=== PATIENT | male | born 1975 | race Caucasian/White ===

== ENCOUNTER 2019-05-01 22:57 | Emergency (ER) | payer OTHER, SELFPAY ==
[2019-05-01 22:58] VITALS: BP 152/100; PULSE 100; RESP 15; TEMP 36.7; BMI 31.4
[2019-05-01 23:15] VITALS: BP 155/100; PULSE 96; RESP 20; O2SAT 97
--- NOTE | 2019-05-01 23:15 | EKG12_ITS ---
Test Reason : CP Blood Pressure : / mmHG Vent. Rate : 095 BPM Atrial Rate : 095 BPM P-R Int : 156 ms QRS Dur : 100 ms QT Int : 394 ms P-R-T Axes : 039 058 018 degrees QTc Int : 495 ms Normal sinus rhythm with sinus arrhythmia Nonspecific ST abnormality Prolonged QT Abnormal ECG Confirmed by LANRE WARNER, CHENCHO ([id number]), editor trade journal RAMESH PASCAL ([id number]) on 05/04/2019 9:33:58 AM Referred By: STEFAN Confirmed By:CHENCHO DE DIOS MD
--- NOTE | 2019-05-01 23:15 | RAD_ITS ---
HISTORY: Chest Pain EXAMINATION/TECHNIQUE: XR Chest 1 View: Portable COMPARISON: 07/16/2014 FINDINGS: EKG leads in place. Shallow inspiration. Normal heart size. No vascular congestion, pleural effusion, or acute pulmonary infiltration. The bony thorax appears intact. RAD/Chest 1 View (Portable) IMPRESSION: No acute cardiopulmonary disease. at 0008 Reported and signed by: Kenn Morataya MD Electronically Signed: Kenn Morataya, at 0:07 EDT Tel , Service support ,
[2019-05-01 23:53] LABS: Absolute Lymphocyte Count 3.28 X10^3/ul (0.83-4.51); Absolute Neutrophil Count 6.8 X10^3/uL (2.0-7.7); Basophil# 0.03 X10^3/uL; Basophil% 0.3 % (0-1); Eosinophil# 0.18 X10^3/uL; Eosinophils% 1.6 % (0-5); Hematocrit 45.2 % (40-54); Hemoglobin 15.4 g/dl (13.0-16.5); Lymphocyte # 3.28 X10^3/ul (4.0); Lymphocyte % 28.8 % (19-41); Mean Corp Hgb Conc 34.1 g/gl (32-36); Mean Corpuscular Hgb 30.9 pg (27.0-32.0); Mean Corpuscular Volume 90.6 fL (80-94); Mean Platelet Vol. 9.8 fl (6.2-12.0); Monocyte# 1.11 X10^3/uL; Monocyte% 9.7 % (0-10); Neutrophil # 6.77 X10^3/uL (2.7-7.7); Neutrophil % 59.4 % (47-70); Platelet Count 336 K/mm3 (150-450); RBC Distribution Width CV 12.5 % (11.6-14.6); RBC Distribution Width SD 40.1 fl (35.1-43.9); Red Blood Count 4.99 M/mm3 (4.6-6.2); White Blood Count 11.4 K/mm3 (4.4-11.0)
[2019-05-01 23:55] LABS: POSITIVE COUNT NO; POSITIVE DIFFERENTIAL NO; POSITIVE MORPHOLOGY NO
[2019-05-02] VITALS: BP 149/103; PULSE 79; RESP 19; O2SAT 96
[2019-05-02 00:01] LABS: Anion Gap 6 (5-15); BUN 18 mg/dL (7-18); BUN/Creat Ratio 16.2 RATIO (10-20); Calcium,Total 9.1 mg/dL (8.5-10.1); Chloride 106 mmol/L (98-107); Creatinine, Serum 1.11 mg/dL (0.70-1.30); EST Glomerular Filtration Rate 77 mL/min (>60); Est Glom Filt Rate - Afr Amer 93 mL/min (>60); Estimated Creatinine Clearance 92.33 ml/min; Glucose 121 mg/dL (74-106); Potassium 3.6 mmol/L (3.5-5.1); Sodium Level 139 mmol/L (136-145)
[2019-05-02 00:03] LABS: Prothrombin Time (Protime)PT. 13.2 SECONDS (11.7-14.9)
[2019-05-02] MEDS: 0.9% Normal Saline 1,000 ML 150 ML IV (00:11)
[2019-05-02] MEDS: Ondansetron 4 MG/2 ML Vial IV (00:12)
[2019-05-02] MEDS: Morphine 4 MG/ML Syringe IV (00:12)
[2019-05-02] MEDS: Aspirin 81 MG TAB.CHEW 324 MG PO (00:12)
[2019-05-02 00:24] LABS: D-Dimer Quantitative (DVT/PE) < 0.27 FEU/ug/m (0.27-0.49)
--- NOTE | 2019-05-02 00:57 | EKG12_ITS ---
Test Reason : REPEAT CP Blood Pressure : / mmHG Vent. Rate : 074 BPM Atrial Rate : 074 BPM P-R Int : 138 ms QRS Dur : 100 ms QT Int : 428 ms P-R-T Axes : 026 030 011 degrees QTc Int : 475 ms Normal sinus rhythm Nonspecific T wave abnormality Prolonged QT Abnormal ECG Confirmed by BROOKS WARNER, WILFRIDO ([id number]), publishing editor RAMESH PASCAL ([id number]) on 05/04/2019 9:12:24 AM Referred By: STEFAN Confirmed By:WILFRIDO GUY MD
[2019-05-02 01:00] VITALS: BP 136/99; PULSE 80; RESP 17; O2SAT 98
[2019-05-02] MEDS: Mag Hydrox/Al Hydrox/Simeth 30 ML UDC PO (01:42)
[2019-05-02 02:00] VITALS: BP 135/94; PULSE 102; RESP 27; O2SAT 98
--- NOTE | 2019-05-02 02:30 | EKG12_ITS ---
Test Reason : CP REPEAT Blood Pressure : / mmHG Vent. Rate : 076 BPM Atrial Rate : 076 BPM P-R Int : 146 ms QRS Dur : 094 ms QT Int : 414 ms P-R-T Axes : 018 028 008 degrees QTc Int : 465 ms Normal sinus rhythm with sinus arrhythmia Normal ECG Confirmed by BROOKS WARNER, WILFRIDO ([id number]), make up editor RAMESH PASCAL ([id number]) on 05/04/2019 9:12:05 AM Referred By: STEFAN Confirmed By:WILFRIDO GUY MD
--- NOTE | 2019-05-02 03:27 | ED.DCSUM_ITS ---
- ER Visit Summary Date of Service: 05/02/19 Chief Complaint: Chest pain History of Present Illness: The patient is a 44 M with history of asthma and hypertension. Patient states around 945 this evening he developed chest heaviness with occasional sharp pain when he takes a deep breath. He points to the low substernal area. He thought he had reflux symptoms and took Tums without improvement. Patient denies shortness of breath. He had no problems with activity tolerance. He has no known cardiac disease. Last stress test was approximately 10 years ago. Physical Examination: Vital signs significant for blood pressure of 152/100, otherwise unremarkable. Patient sitting upright in bed no acute distress. Head and neck examination unremarkable. Heart is regular rate and rhythm. Lung sounds are clear. Chest wall is nontender. Abdomen is soft and nontender. Lower extremity examination was no calf tenderness or edema. Test Results: EKG is sinus at [address] change. He has maybe 1/2 mm depression. Chest x-ray is unremarkable. CBC was a white count 11.4 with normal differential. Chemistry studies unremarkable. Troponin is less than 0.015. D-dimer is less than 0.27. Emergency Department Course and Treatment: Patient was given aspirin, morphine, and Zofran. On repeat evaluation he states that did not help his pain and if anything may have worsened it somewhat. Repeat EKG was obtained and is unchanged. Patient is given a GI cocktail and does feel improved. 3-hour repeat EKG and troponin are both unremarkable. Troponin remains less than 0.015. Patient is placed on antacid medicine for home. He is to return for any worsening symptoms and follow-up with his primary care physician within 1 week. Treatment Plan: [] Disposition: Discharge Impression: Atypical chest pain This note was generated with [employer] dictation software. It may contain incorrect words, spelling, and punctuation that were not noted in review of the chart prior to signing ED Disposition - Plan for ED Patient: Disposition: Home or Assisted Living Instructions: ED Chest Pain Atypical Unkn Cause Prescriptions: Omeprazole [Prilosec] 20 mg PO DAILY #30 capsule Referrals: Rula Denny DO [Primary Care Provider] - 1 Week
[2019-05-02 03:42] VITALS: BP 137/93; PULSE 79; RESP 13; O2SAT 99
== END 2019-05-02 03:42 | disposition home or self-care (01) ==
PROVIDERS: Emergency Provider Emergency Medicine; Family Provider Internal Medicine; PCP Internal Medicine
DX: R07.89 Other chest pain (principal); I10 Essential (primary) hypertension; J45.909 Unspecified asthma, uncomplicated; Z79.899 Other long term (current) drug therapy
CPT/HCPCS: 71045; 80048; 84484; 85025; 85379; 85610; 93005; 96361; 96374; 96375; 99285; J7030; A4216; J2405

== ENCOUNTER → 2019-06-19 | Outpatient (CLI) | payer OTHER, SELFPAY ==
[2019-06-19 10:41] VITALS: BMI 30.8
--- NOTE | 2019-06-19 10:51 | RAD_ITS ---
STUDY: X-RAY - LEFT SHOULDER REASON FOR EXAM: Bump at the lateral shoulder area, injured playing volleyball. TECHNIQUE: 3 view(s) of the shoulder. COMPARISON: None. FINDINGS: Normal glenohumeral articulation. Normal acromioclavicular joint. Normal acromion. Normal humeral head and visualized proximal humerus. The soft tissue structures are unremarkable. Normal visualized pulmonary apex. RAD/Shoulder min 2 Views IMPRESSION: Normal x-ray examination of the left shoulder. Electronically Signed: Zach Gomez MD at 12:12 EDT Tel , Service support ,
== END | disposition home or self-care (01) ==
LOC: HPRAD 10:50
PROVIDERS: Family Provider Internal Medicine; PCP Internal Medicine; Referring Provider Orthopaedic Surgery; Visit Provider Orthopaedic Surgery
DX: S42.92XA Fracture of left shoulder girdle, part unspecified, initial encounter for closed fracture (principal)
CPT/HCPCS: 73030

== ENCOUNTER → 2019-06-27 | Outpatient (CLI) | payer OTHER, SELFPAY ==
[2019-06-19 10:41] VITALS: BMI 30.8
--- NOTE | 2019-06-27 06:43 | MRI_ITS ---
STUDY: MRI UPPER EXTREMITY LEFT HUMERUS WITHOUT CONTRAST REASON FOR EXAM: Male, 44 years old. Deltoid strain, injury 2 mos ago, bulge mid humerus TECHNIQUE: Standardized fat and water weighted pulse sequences were obtained in all 3 orthogonal planes. COMPARISON: None. FINDINGS: Normal subcutis adipose space. There is no demonstrated solid, cystic, or lipomatous mass within the subcutaneous adipose space. Normal visualized muscles and fascia. The distal insertion of the biceps tendon is not visualized on this examination. There is no demonstrated muscular strain of the deltoid muscle. There is thinly encapsulated lipomatous tissue along the lateral aspect of the deltoid muscle (axial T1 series 6, image 14), measuring 20 x 6 x 32 mm (AP x mediolateral x craniocaudal) consistent with a thinly encapsulated lipoma. Normal visualized neurovascular bundles. Normal humerus. MRI/Upper Ext/No Jt/ wo IMPRESSION: 1. No demonstrated muscular strain or solid soft tissue mass. 2. Thinly unencapsulated lipomatous mass along the lateral aspect consistent with a lipoma. Electronically Signed: Wally Covarrubias DO at 9:44 EDT Tel , Service support ,
--- NOTE | 2019-06-27 06:43 | MRI_ITS ---
STUDY: MRI LEFT SHOULDER REASON FOR EXAM: Male, 44 years old. The patient complains of shoulder pain since 2018 with a muscle strain. TECHNIQUE: Standardized fat and water weighted pulse sequences were obtained in all 3 orthogonal planes. COMPARISON: None. FINDINGS: There is a high-grade articular surface tear at the teno-osseous insertion of the supraspinatus tendon (coronal T2 fat sat series 5, images 6; sagittal T2 series 6, image 8; axial proton-density fat-sat series 2, image 8). This tear measures 7 x 5 x 3 mm (AP x mediolateral) craniocaudal). This is a near full-thickness tear with a ribbonlike intact bursal surface. There is tendinosis with thickening of the intact central and posterior portion of the supraspinatus tendon. There is minimal tendinosis and thickening of the distal insertion of the infraspinatus tendon. There is a small intratendinous tear at the musculotendinous junction (coronal T2 fat sat series 5, image 12; sagittal T2 series 6, image 11). This small intratendinous tears tubular and morphology measuring 2 mm in diameter and 5 mm in length. Normal subscapularis tendon. Normal teres minor tendon. Normal supraspinatus muscle. Normal infraspinatus muscle. Normal subscapularis muscle. Normal teres minor muscle. Normal glenohumeral articulation. Normal humeral head and visualized proximal humerus. Normal biceps labral complex. Normal intracapsular long biceps tendon. There is articular surface fraying of the superior labrum (coronal proton density fat sat series 4, image 9; coronal T2 fat sat series 5, image 9) consistent with a type I SLAP tear. There is a nondisplaced labral tear of the posterior labrum at the junction of the posterior superior posterior inferior quadrant (axial proton density fat sat series 2, image 11) which extends into the posterior inferior quadrant. There is a sublabral foramen of the anterior superior labrum but no demonstrated anterior labral tear. Normal capsulo- ligamentous complex. Normal rotator interval. 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 There is a Type I morphology (flat undersurface), with a neutral orientation. There is minimal fluid distention of the subacromial bursa, consistent with mild subacromial-subdeltoid bursitis (coronal T2 fat sat series 5, image 7). Normal visualized coracohumeral and coracoacromial ligaments. Normal quadrilateral space. Normal axillary space. Normal deltoid muscle without a demonstrated muscular strain.. Normal trapezius muscle. MRI/Upper Ext Joint Only(Routine) IMPRESSION: 1. High-grade partial articular surface tear of the anterior leading edge of the supraspinatus tendon. 2. Small intratendinous tear of the infraspinatus tendon, as detailed above. 3. Articular surface fraying of the superior labrum consistent with a type I SLAP tear. 4. Posterior labral tear, as detailed above. 5. Mild subacromial-subdeltoid bursitis. 6. 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 7. No demonstrated strain of the deltoid muscle. Electronically Signed: Wally Covarrubias DO at 9:12 EDT Tel , Service support ,
== END | disposition home or self-care (01) ==
PROVIDERS: Family Provider Internal Medicine; PCP Internal Medicine; Referring Provider Orthopaedic Surgery; Visit Provider Orthopaedic Surgery
DX: S46.812A Strain of other muscles, fascia and tendons at shoulder and upper arm level, left arm, initial encounter (principal)
CPT/HCPCS: 73218; 73221

== ENCOUNTER 2019-11-28 06:20 | Day surgery (SDC) | payer OTHER, SELFPAY ==
[2019-11-01 13:35] VITALS: BMI 30.8
[2019-11-28] VITALS (10 sets, daily range): BP systolic 101–137; BP diastolic 64–90; PULSE 74–94; RESP 15–16; TEMP 36.2–36.4; O2SAT 92–96; BMI 31.4
--- NOTE | 2019-11-28 06:24 | EKG12_ITS ---
Test Reason : PRE OP Blood Pressure : / mmHG Vent. Rate : 093 BPM Atrial Rate : 093 BPM P-R Int : 164 ms QRS Dur : 102 ms QT Int : 410 ms P-R-T Axes : 012 037 012 degrees QTc Int : 509 ms Normal sinus rhythm Prolonged QT Abnormal ECG When compared with ECG of 02-MAY-2019 02:59, No significant change was found Confirmed by RIA CARTER ([id number]), stem mounter ELLEN MCBRIDE ([id number]) on 11/29/2019 11:21:10 AM Referred By: Jessica Greenberg Confirmed By:RIA CARTER
[2019-11-28 06:49] LABS: Hematocrit 45.1 % (40-54); Hemoglobin 15.3 g/dL (13.0-16.5); Mean Corp Hgb Conc 33.9 g/dL (32-36); Mean Corpuscular Hgb 31.5 pg (27.0-32.0); Mean Corpuscular Volume 92.8 fL (80-94); Mean Platelet Vol. 9.3 fl (6.2-12.0); Platelet Count 325 K/mm3 (150-450); RBC Distribution Width CV 11.7 % (11.6-14.6); RBC Distribution Width SD 39.9 fl (35.1-43.9); Red Blood Count 4.86 M/mm3 (4.6-6.2); White Blood Count 8.5 K/mm3 (4.4-11.0)
[2019-11-28] MEDS: Lactated Ringers 1,000 ML 100 ML IV (07:09)
[2019-11-28] MEDS: Epinephrine (1 mg/ml) 1 MG/ML VIAL (08:00)
[2019-11-28] MEDS: Cefazolin 2 GM in 0.9% Normal Saline 100 ML IV (08:00)
--- NOTE | 2019-11-28 08:00 | TESH_PTH ---
PATIENT: GADIEL CARVAJAL [place] [facility] [id number] AGE/SX: 44/M ROOM: RE11/28/[address]: Dr. Jessica Greenberg DO : 1975 BED: DIS: 11/28/2019 SPEC #: [id number] RECD: 11/28/19 10:52 STATUS: BHASKAR RUBEN #: [id number] PETE: 11/28/19 08:[address]: Jessica Greenberg DEPT: SURGICAL PATHOLOGY RECD BY: Adolph Manjarrez ENTERED: 11/28/19 11:47 SP TYPE: TENDON OTHR DR: Dr. Rula Denny, Tissues: Tendon and tendon sheath, NOS Procedures: Surgery Specimen Level III HEADER OPERATION: Arthroscopy, rotator cuff debridement, subacromial PRE-OP DIAGNOSIS: Rotator cuff and radial tear TISSUE SUBMITTED: Biceps tendon MICROSCOPIC DIAGNOSIS Bicep tendon: A piece of dense fibroconnective tissue with reactive changes. SUZIE:nayeli 11/29/19 MICROSCOPIC DESCRIPTION Slides are reviewed. GROSS DESCRIPTION Received in fixative is one container labeled with the patient's name and designated biceps tendon. The specimen consists of an elongated fragment of light rodriguez-white tendinous tissue measuring 4.5 cm in length and 0.5 cm in average diameter. The specimen is sectioned and submitted in its entirety in one cassette. / AM:nayeli 11/28/19 TC:5 CPT: 81878
--- NOTE | 2019-11-28 08:15 | PCM.DC.ORTHO ---
Discharge Diet: No Restrictions - Remove dressings in 4 days and apply a Band-Aid to incision sites, may move shoulder but do not actively flex or extend elbow, may get incision wet after 4 days, follow-up in 2 weeks, call with increased pain numbness tingling or further issues arise Discharge Activity: May Not Drive May shower in (days): 1 Ice area for (Minutes): 20 - Every hour while awake. Weight Bearing Status: Weight bearing as tolerated Keep extremity elevated above heart level: Operative Extremity Call your doctor if your incision/area has: Continuous Slow Oozing, Sudden Increased Bleeding, Increased Pain/ Swelling, Increased Redness, Foul Smelling Discharge Call your doctor if you observe: Fever of 101 or Higher, Coldness, Increased Pain, Numbness or Tingling, Change in Color, Calf discomfort Allergies/Adverse Reactions: Allergies codeine Adverse Reaction (Verified 11/23/19 10:01) Rash Medications to take at Discharge Gabapentin [Neurontin] 300 mg PO BID 05/01/19 Losartan Potassium [Cozaar] 25 mg PO DAILY 05/01/19 Albuterol IH (ProAir) [Proair Hfa (SP)Vent Pts] 1 - 2 puff INHALATION Q4H PRN PRN 11/23/19 Fexofenadine HCl [Shi Allergy] 180 mg PO DAILY 11/23/19 Multivitamin with Minerals [Multiple Vitamin] 1 ea PO DAILY 11/23/19 Omeprazole [Prilosec] 20 mg PO DAILY PRN 11/23/19 Oxycodone HCl/Acetaminophen [Percocet 5/325] 1 - 2 tab PO Q6H PRN PRN 5 Days #28 tab 11/28/19 Zolpidem Tartrate [Ambien (Generic)] 5 mg PO QHS PRN PRN #14 tab 11/28/19 The following prescriptions were given: Zolpidem Tartrate [Ambien (Generic)] 5 mg PO QHS PRN PRN #14 tab PRN Reason: Insomnia Transmission Status: Received by [facility] Oxycodone HCl/Acetaminophen [Percocet 5/325] 1 - 2 tab PO Q6H PRN PRN 5 Days #28 tab PRN Reason: Pain Transmission Status: Received by [facility] Primary Care Physician: Rula Denny DO [Primary Care Provider] - Test Results: Test results from this visit will be discussed in further detail at your follow-up appointment, if applicable. Please Follow Up With: Jessica Greenberg, DO - [phone]
--- NOTE | 2019-11-28 08:16 | HP.PCM_ITS ---
History and Physical Intake Vital Signs 11/01/19 Body Mass Index (BMI) 30.8 Intake Visit Reasons: LEFT SHOULDER Is patient in pain?: Yes Pain scale (1-10): 6 Allergies codeine Adverse Reaction (Verified 05/01/19 23:00) Rash Medications Gabapentin [Neurontin] 300 mg PO DAILY 05/01/19 [History Confirmed 11/01/19] Losartan Potassium [Cozaar] 25 mg PO DAILY 05/01/19 [History Confirmed 11/01/19] Omeprazole [Prilosec] 20 mg PO DAILY #30 cap 05/02/19 [Rx Confirmed 11/01/19] PFSH Social History (Updated 11/05/19 @ 22:29 by Jessica Greenberg DO) Smoking Status: Never smoker HPI LEFT SHOULDER: Details: Parts of this documentation were recorded by a scribe, this documentation accurately reflects the service provided and the decisions made by me, Jessica Greenberg DO 11/01/19 1330. GADIEL CARVAJAL is a 44 year old M here today for F/U on left shoulder. Patient had a steroid injection in 06/2019 and states this was helpful for about 3 months and his pain has returned and he states his pain as worsened. Denies numbness, tingling or other associated symptoms. Wishes to discuss a more preeminent tx option, states he does not wish to keep having injections. ROS Musc Reports joint pain, Denies joint swelling, Reports limited joint movement, Denies numbness, Reports radiating pain into limb, Reports stiffness, Denies tingling Skin/Breast Denies redness, Denies lesions, Denies itching, Denies rash, Denies skin swelling Neuro No numbness, No tingling Ortho Exam Left Shoulder Testing: Yes TTP Biceps, No Sulcus Sign, No translation, Yes empty can, Yes Ziebach Continues to have pain near the no rales rhonchi wheezing, no abdominal pain, no audible bruits Assessment & Plan Plan Re-reviewed the MRI, explained that his options remain PT for strengthening and oral nsaids or surgical intervention for possible rtc repair, and reviewed difference between a tenodesis vs tenotomy. Reviewed post op restrictions depending on the procedure and sling use. Reviewed the pre-operative plans with the patient. Risks and benefits of the procedure were fully explained, including but not limited to infection, neurovascular injury, continued pain, arthritis, stiffness, need for further surgery, re-injury, DVT, PE, general risks of anesthesia, and loss of limb or life. The patient understands all the risks and does wish to proceed with written consent. Follow up post op or sooner if pain, swelling, numbness or associated symptoms, or concerns develop. All questions answered. Patient in agreement of plan. Coding Level of Care Code Off vis,est,level 4
[2019-11-28] MEDS: Mupirocin Ointment 22gm Tube 1 APPLIC (09:00)
--- NOTE | 2019-11-28 09:36 | OP.PCM_ITS ---
Report of Operation Date of Procedure: 11/28/19 Pre-Operative Diagnosis: left shoulder biceps/slap tear, rotator cuff tear, subacromial impingment syndrome Post-Operative Diagnosis: same Surgery/Procedure Performed:: sals, rotator cuff debridement, labral debridement, subacromial decompression/acromioplasty, open subpec biceps tenodesis scout leaser: Kenn Love Type of Anesthesia:: General Anesthesiologist: Esequiel Saeed Specimen's removed: biceps tendon Estimated Blood Loss (mL): min Fluids Replaced: 1000ml lr Description of Procedure: Preop note Patient is a 44-year-old male with continued left shoulder pain recalcitrant to conservative treatment options including injections. MRI confirms leading edge rotator cuff tear SLAP tear biceps tendinosis as well as subacromial impingement. On physical exam patient has biceps pain referred rotator cuff pain and impingement sign no instability on exam. Risk benefits and alternatives were discussed with patient. Risk include but not limited to blood loss, blood clot, infection, neurovascular leg, failure procedure, loss of life and loss of limb. Patient is aware the proceed with left shoulder arthroscopy repair as indicated. Operative note Patient seen and examined preoperative holding area. Left shoulder was marked. Patient brought to the operating room placed supine on the operating table. Signed consent signed, anesthesia, antibiotics were administered. The left arm was prepped and draped in usual sterile fashion after beachchair was maintained. Did recheck check blood pressure throughout positioning which was stable. All bony prominences well-padded SCDs placed on his bilateral lower extremities. We marked our in our incisions for our bony landmarks for portal placement. The glenohumeral joint was insufflated from the posterior aspect with good return. Timeout was performed. We then used an 11 blade to create our posterior portal. Began our diagnostic arthroscopy. The glenohumeral joint was intact. The labrum was circumferentially circumferentially off and the biceps had torn off the labrum at the at the superior aspect of the biceps had erythema around it as well. The rotator cuff was intact there was a leading edge partial tear as well as some fraying of the subscap however both were of the footprint were intact. We then created an anterior portal under direct visualization. We truncated the biceps at its insertion and then debrided back the insertion with a shaver we then gently debrided back some of the unstable labral pieces. Again we did further debridement of the rotator cuff on the leading edge as well as at subscap was but again as the footprint were intact we did not need to repair these. We irrigated the shoulder with copious amounts of sterile saline. We then moved to the subacromial space created a lateral portal under direct visualization there is extensive bursitis throughout we use a combination of a shaver shaver and ablator wand to resect back the thickened bursa we also co- plane the lateral anterior lateral edge of the acromion. We then irrigated the subacromial space with copious nonsterile saline. We then moved to our open subpectoral tenodesis. We reprepped the area and weighed the allotted time we created our incision just distal to the pec insertion about 2 cm in length. We dissected down tenotomies then found the peritenon of the biceps the biceps was then removed from the incision we then truncated the appropriate length of the a rm with the elbow in extension. We then whipstitched the the edge then drilled unicortical using the ArthItsGoinOn pec button system flipped the button within the humeral shaft and then after and use the lead in the whipstitch suture suture through the button brought the button into the arm and flipped the button in the humeral shaft and then use a free needle to sew the edge of the the limbs of the suture down the periosteum for reinforcement. We then irrigated the incision with copious nonsterile saline. The tenodesis incision was closed with Vicryl and a 4-0 Monocryl the portals were closed with interrupted nylon stitches sterile dressings were applied sling was applied to the upper extremity. Patient tolerated procedure well no complication child recovery room in stable condition Postoperative note Nonweightbearing upper extremity Do not usually do not use elbow but may use shoulder Pharmacy has prescriptions We will give pictures to family in 2 weeks Call with any increased pain numbness tingling or further issues arise Dragon disclaimer This note was generated with [employer] dictation software. It may contain incorrect words, spelling, and punctuation that were not noted in checking the note before signing.
== END 2019-11-28 13:26 | disposition home or self-care (01) ==
LOC: SDC 06:20 → AC 06:21
PROVIDERS: Anesthesiology; Family Provider Internal Medicine; PCP Internal Medicine; Referring Provider Orthopaedic Surgery; Visit Provider Orthopaedic Surgery
PROC: (CPT 29827; principal; 2019-11-28 07:40)
DX: S46.212A Strain of muscle, fascia and tendon of other parts of biceps, left arm, initial encounter (principal); M75.102 Unspecified rotator cuff tear or rupture of left shoulder, not specified as traumatic; M75.42 Impingement syndrome of left shoulder; X58.XXXA Exposure to other specified factors, initial encounter; Y93.9 Activity, unspecified; Y92.9 Unspecified place or not applicable; I10 Essential (primary) hypertension; K21.9 Gastro-esophageal reflux disease without esophagitis; J45.909 Unspecified asthma, uncomplicated; Z79.899 Other long term (current) drug therapy; Z87.891 Personal history of nicotine dependence
CPT/HCPCS: 23430; 29826; 29827; 85027; 88304; 93005; J7120; J2405

== ENCOUNTER → 2020-01-25 12:25 | Outpatient (CLI) | payer OTHER, SELFPAY ==
[2020-01-10 12:57] VITALS: BMI 31.4
--- NOTE | 2020-01-25 12:26 | MRI_ITS ---
STUDY: MRI UPPER EXTREMITY LEFT HUMERUS WITH T WITHOUT CONTRAST REASON FOR EXAM: Follow-up lipoma. TECHNIQUE: Standardized fat and water weighted pulse sequences were obtained in all 3 orthogonal planes, pre-and post contrast administration. IV 20CC DOTAREM was administered for the contrast portion of the examination. COMPARISON: MRI images 06/27/2019. FINDINGS: There is a nonencapsulated superficial lipoma at the lateral aspect of the proximal upper arm between the skin markers (T1 coronal images 15-23). There is no associated contrast enhancement. There is mild edema in the proximal biceps muscle from recent biceps tenodesis (inversion recovery axial images 21-23) with associated contrast enhancement (postcontrast T1 axial images 21-25). The biceps tenodesis appears intact. Normal visualized neurovascular bundles. There is an anchor in the proximal humeral diaphysis. Otherwise, unremarkable humerus. MRI/Upper Ext No Joint W/WO Cont IMPRESSION: Superficial lipoma in the lateral aspect of the upper arm without interval change. Recent biceps tenodesis. Electronically Signed: Zach Gomez MD at 14:23 EST Tel , Service support ,
== END ==
PROVIDERS: PCP Internal Medicine; Referring Provider Orthopaedic Surgery; Visit Provider Orthopaedic Surgery
DX: D17.20 Benign lipomatous neoplasm of skin and subcutaneous tissue of unspecified limb (principal)
CPT/HCPCS: 73220; A9575

== ENCOUNTER 2020-03-24 18:00 | Outpatient (RCR) | payer OTHER, SELFPAY ==
[2019-12-13 10:32] VITALS: BMI 31.4
--- NOTE | 2019-12-31 20:16 | HP.PTEVAL ---
Patient's Visit Information GADIEL CARVAJAL is a 44 year old M referred to Physical Therapy by Dr. Jessica Greenberg DO with a diagnosis of S/P LEFT RTC DEBRIDEMENT,SUBCROMIAL DECOMPRESSION,OPEN TENDONESIS. Date of Evaluation: 12/31/19 Physical Therapist: Asim Alcantara, PT, Cert MDT, OCS - Visit Plan Frequency: 2x /Week Duration: 8weeks Plan: s/p LEFT SHOOULDER RTC/LABRAL DEBRIDEMENT , SUBACROMIAL DECOMPRESSION ,OPEN TENDONESIS ON 11/28/19. SLING 6WEEKS,LIMIT ER 40 DEGREES AND NO EXTENSION OR HORIZONTAL EXTENSION 4-6WEEKS,NO EXCESSIVE BICEPS LOADING FOR 8WEEKS,. SEE CLINICAL PRACTICE GUIDELINES FOR PROGRESSION. INTIALLY PROM/AAROM /AROM SHOULDER,ISMOTRICS PROGRESS STRENGTHNING PER GUIDELINES ,MANUAL THERAPY - Subjective Findings: This 44 y/o male presents to physical therapy s/p left RTC debridement ,subacromial decompression and open tendonesis on 11/28/19 at [facility] d/c to sling. Patient seen on 12/13 and start PT .Patient has left shoulder pain about one year. Patient playing volleyball felt sharp pain. Patient seen DR De La Rosa for shoulder coritizone injection. Patient had MRI . Then had surgery . Patient has some bicep pain ,stopped MEDS pain . Patient has limitations with functional ADL's,self hygine and job demands. Patient unable to RTW and impairs QOL.Patient has difficuly sleeping. Patient denies parathesia/tingling. Patient RTD Jan 10. SOCAIL : . 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 SKIN: inscion wll approximate. NEURO: intact. PALPATION: unremarkable. PROM: shoulder flexion 120 degrees,abd 140 in scaption,ER 40 degrees,elbow flexion WFL. MMT: NT - Goals Goal 1:: Patient to be Independant with HEP. Goal Time Frame: 8-12 Weeks Goal 2:: Patient improve AROM shoulder to RTW and prior level of functin activity Goal Time Frame: 8-12 Weeks Goal 3:: Patient to increase strength right shoulder RTC 4/5,DELTOID 4-/5 to improve function and RTW. Goal Time Frame: 8-12 Weeks Goal 4:: Pateint improve quick shoulder dash by 12-15 points to improve QOL and RTW. Goal Time Frame: 8-12 Weeks Goal 5:: Patient be able to perform ADLS and job demnads without limiationms Goal Time Frame: 4-6 Weeks - Rehabilitation Potential Physical Therapy Diagnosis: This patient underwent s/p RTC /LABRAL debridement ,subacromial decompression /acromioplasty and open biceps tendonesis with decrease ROM ,strength,pain thus impairs ADLS' ,houseork chores and RTW Rehabilitation Potential: Good - Anticipated Interventions Patient/Client Instruction: Educate patient on: Condition, Plan of Care For the Purpose of:: To decrease pain, To increase ROM, To improve muscle performance and motor function, To improve ability to perform ADL's, To increase tolerance to activity/condition/position, To improve performance and independence with ADL's, To improve ability of physical actions for home/community/work/leisure, To improve health of tissue, To decrease soft tissue restriction, To increase flexibility/ROM, To improve ability to perform tasks related to life management Therapeutic Exercise to Include: Strength training, Postural training, Flexibilty training, Passive ROM, Active ROM Comment: SEE GUIDELINES FOR PROGRESSION ROM/STRENGTHENING For the Purpose of:: To decrease pain, To increase ROM, To improve muscle performance and motor function, To improve ability to perform ADL's, To increase tolerance to activity/condition/position, To improve ability of physical actions for home/community/work/leisure, To improve health of tissue, To decrease soft tissue restriction, To increase flexibility/ROM, To reduce risk of recurrence, To improve health and function, To improve ability to perform tasks related to life management Manual Therapy Techniques to Include: Mobilization, Passive ROM Comment: G-H For the Purpose of:: To decrease pain, To increase ROM, To improve nutrient delivery to tissue, To increase oxygenation perfusion, To improve health of tissue, To decrease soft tissue restriction Cryotherapy (ice pack, ice massage): Yes Thermo therapy (hot pack): Yes For the Purpose of:: To decrease pain, To increase ROM, To improve health of tissue, To decrease soft tissue restriction Thank you for the opportunity to evaluate your patient. For Medicare and Medicare HMO plans, please review the plan of care and approve it. It will need to be FAXED BACK to us at [phone] for Medicare purposes. For Medicare only, by signing this I certify the plan of care. Please let me know if there are questions or concerns regarding this plan of care. Physician Signature: Date:
--- NOTE | 2020-03-24 19:02 | HP.PTDCSUM ---
It has been my pleasure to treat GADIEL CARVAJAL referred by Dr. Jessica Greenberg DO, with the diagnosis of S/P LEFT RTC DEBRIDEMENT,SUBCROMIAL DECOMPRESSION,OPEN TENDONESIS for a total of 20 visit(s). Discharge Date: 03/24/20 Please see the following information for a summary of their discharge status. Subjective: Doing well. Dr aritad me rturn to work full duty. Patient doing well with job demnads and housework tasks Left Shoulder Pain Intensity (Out of 10): 0 % Improvement: 90 Objective/Function: POSTURE : WFL. AROM: FLEXION/ABD 170 DRGREES,ER 90 DEGREES,IR T11. MMT: RTC 5/5,DELTOID 5/5 Goal 1:: Patient to be Independant with HEP. Goal Progress: Goal Met Goal 2:: Patient improve AROM shoulder to RTW and prior level of functin activity Goal Progress: Goal Met Goal 3:: Patient to increase strength right shoulder RTC 4/5,DELTOID 4-/5 to improve function and RTW. Goal Progress: Goal Met Goal 4:: Pateint improve quick shoulder dash by 12-15 points to improve QOL and RTW. Goal Progress: Goal Met Goal 5:: Patient be able to perform ADLS and job demnads without limiationms Goal Progress: Goal Met Plan: D/C Discharge Comments: HEP FULLY DUTY AT WORK RELEASED PER MD If there are questions or concerns regarding this patient's physical therapy, please feel free to call me at [phone]. Thank you for the referral of this patient. Sincerely, Asim Alcantara PT, Cert MDT, OCS
== END 2020-03-24 19:00 | disposition home or self-care (01) ==
LOC: PT 18:00
PROVIDERS: PCP Internal Medicine; Referring Provider Orthopaedic Surgery; Visit Provider Orthopaedic Surgery
DX: Z98.890 Other specified postprocedural states (principal)
CPT/HCPCS: 97110; 97140; 97162

== ENCOUNTER 2020-07-14 08:24 | Emergency (ER) | payer OTHER, SELFPAY ==
[2020-02-21 12:37] VITALS: BMI 31.4
[2020-07-14 08:25] VITALS: BP 161/110; PULSE 121; RESP 17; TEMP 36.3; O2SAT 96; BMI 31.9
--- NOTE | 2020-07-14 08:41 | RAD_ITS ---
STUDY: X-RAY CHEST REASON FOR EXAM: Male, 45 years old. SOB, COUGH, AND CHEST CONGESTION X 2-3DAYS TECHNIQUE: Single AP portable view of the chest. COMPARISON: Comparison is made with prior study dated 05/01/2018. FINDINGS: EKG electrodes are seen. There now is evidence of increased interstitial markings at the lung bases more prominent on the left side. Follow-up is recommended. No focal consolidation is seen. There is no demonstrated pleural abnormality. Normal size heart. Normal mediastinum and mickey. Normal visualized pulmonary arteries. Normal visualized aortic arch and descending thoracic aorta. Normal visualized thoracic spine. Normal visualized ribs, clavicles, and shoulders. There is no demonstrated abnormality of the visualized soft tissue structures of the upper abdomen. RAD/Chest 1 View (Portable) IMPRESSION: Increased interstitial markings at both lung bases more prominent at the left lung base. Follow-up is recommended. Electronically Signed: Jareth Bajwa, at 9:57 EDT , Service support ,
--- NOTE | 2020-07-14 08:41 | EKG12_ITS ---
Test Reason : Blood Pressure : / mmHG Vent. Rate : 111 BPM Atrial Rate : 111 BPM P-R Int : 136 ms QRS Dur : 104 ms QT Int : 380 ms P-R-T Axes : 042 023 069 degrees QTc Int : 516 ms Sinus tachycardia Nonspecific T wave abnormality Abnormal ECG Confirmed by BROOKS WARNER, WILFRIDO ([id number]), index editor FAY BLANC ([id number]) on 07/15/2020 9:27:41 AM Referred By: JESSICA Confirmed By:WILFRIDO GUY MD
[2020-07-14 08:51] VITALS: O2SAT 98
[2020-07-14 09:04] VITALS: PULSE 109; RESP 20
[2020-07-14] MEDS: Ipratropium/Albuterol Sulfate 3 ML AMPUL.NEB INHALATION (09:04)
[2020-07-14] MEDS: MethylPREDNISolone 125 MG/2 ML Vial IV (09:07)
[2020-07-14 09:27] VITALS: BP 142/97; PULSE 107; RESP 18; TEMP 36.7; O2SAT 96
[2020-07-14 09:28] LABS: Absolute Lymphocyte Count 1.55 X10^3/uL (0.83-4.51); Absolute Neutrophil Count 9.9 X10^3/uL (2.0-7.7); Basophil# 0.04 X10^3/uL; Basophil% 0.3 % (0-1); Eosinophil# 0.09 X10^3/uL; Eosinophils% 0.7 % (0-5); Hematocrit 41.7 % (40-54); Hemoglobin 14.6 g/dL (13.0-16.5); Lymphocyte # 1.55 X10^3/ul (4.0); Lymphocyte % 12.5 % (19-41); Mean Corpuscular Hgb 32.4 pg (27.0-32.0); Mean Corpuscular Volume 92.7 fL (80-94); Mean Platelet Vol. 10.6 fl (6.2-12.0); Monocyte# 0.71 X10^3/uL; Monocyte% 5.7 % (0-10); NRBC Flagged by Analyzer 0 % (0-5); Neutrophil # 9.94 X10^3/uL (2.7-7.7); Neutrophil % 80.4 % (47-70); Platelet Count 330 K/mm3 (150-450); RBC Distribution Width CV 12.6 % (11.6-14.6); RBC Distribution Width SD 41.9 fl (35.1-43.9); White Blood Count 12.4 K/mm3 (4.4-11.0)
[2020-07-14 09:33] LABS: Anion Gap 5 (5-15); BUN 17 mg/dL (7-18); BUN/Creat Ratio 13.1 RATIO (10-20); Calcium,Total 8.7 mg/dL (8.5-10.1); Chloride 113 mmol/L (98-107); EST Glomerular Filtration Rate 64 mL/min (>60); Est Glom Filt Rate - Afr Amer 77 mL/min (>60); Estimated Creatinine Clearance 78.04 ml/min; Glucose 129 mg/dL (74-106); Potassium 4.1 mmol/L (3.5-5.1); Sodium Level 142 mmol/L (136-145)
[2020-07-14 09:35] LABS: D-Dimer Quantitative (DVT/PE) 0.39 FEU/ug/m (0.27-0.49)
--- NOTE | 2020-07-14 09:38 | ED.DCSUM_ITS ---
- ER Visit Summary Date of Service: 07/14/20 Chief Complaint: Shortness of breath History of Present Illness: The patient is a [address] Denny. He reports his shortness of breath began 3 days ago. States he has been waking up at 2:00 in the morning short of breath. However, he reports that this does not seem to get worse when he lies down flat. States that severe at worst and mild currently. Shortness of breath is worsened with exertion. Patient denies any fever or chills. He does report he has a cough that is productive of clear sputum without blood. He reports he has pain to his chest that is a bilateral dull, aching pain that is constant with intermittent worsening that lasts minutes. It is increased with exertion. Is decreased with rest. Is 10-10 at worst 1 out of 10 currently. Physical Examination: Vitals: Stable. Afebrile. General: Well-nourished and well-developed. Head: Normocephalic atraumatic. Neck: Supple, no lymphadenopathy. No JVD. Nontender. Cardiovascular: Regular rate and rhythm. No murmurs. Respiratory: No respiratory distress. Mild wheezing bilaterally with good air movement. Abdominal: Soft, nontender, nondistended, normal bowel sounds. No guarding, rebound, or peritoneal signs. Back: Nontender. Extremities: Nontender, no edema. Skin: Normal color, no rash. Neurologic: Alert and oriented ?3. Cranial nerves II through XII are intact. Normal strength and sensation. Psych: Normal affect. Test Results: EKG is sinus tach at [address] changes. Troponin is negative. BNP is 394.2. D-dimer is negative. Chem-7 shows a chloride 113 glucose 129. CBC shows white count of 12.4 with 80 segmented neutrophils and 13 lymphocytes. COVID-19 test is pending. Clinical Impression(s) from Imaging Studies Chest X-Ray 07/14/20 08:41 IMPRESSION: Increased interstitial markings at both lung bases more prominent at the left lung base. Follow-up is recommended. Electronically Signed: Jareth Bajwa, at 9:57 EDT , Service support , Emergency Department Course and Treatment: Patient was treated albuterol Atrovent aerosol with significant relief. He was given Solu-Medrol IV and doxycycline p.o. Treatment Plan: I discussed the findings with the patient. He will be discharged with 5 days of Lasix. He also be placed on a 5-day burst of prednisone and doxycycline. Instructed to follow-up his primary care physician in 3 to 5 days if not improving. Return to the emergency department for any worsening symptoms. Disposition: To home in improved and stable condition. Impression: 1. URI. 2. Asthma. 3. BNP 394.2. This note was generated with [employer] dictation software. It may contain incorrect words, spelling, and punctuation that were not noted in review of the chart prior to signing ED Disposition - Plan for ED Patient: Instructions: ED Upper Resp Infec Abx Tx Prescriptions: Prednisone [Deltasone] 40 mg PO DAILY #10 tablet Doxycycline 100 mg PO BID #14 capsule Furosemide [Lasix] 20 mg PO DAILY #5 tablet Referrals: Rula Denny DO [Primary Care Provider] - 3-5 Days if not improving
[2020-07-14 10:00] VITALS: BP 146/103; PULSE 108; RESP 19; TEMP 36.7; O2SAT 95
[2020-07-14 10:27] VITALS: BP 142/94; PULSE 107; RESP 18; O2SAT 96
[2020-07-14 10:36] LABS: BNP,B-Type NATRIURETIC PEPTIDE 394.2 pg/mL (0-100)
[2020-07-14] MEDS: Doxycycline 100 MG CAPSULE PO (11:09)
== END 2020-07-14 11:16 | disposition home or self-care (01) ==
LOC: ED 09:34
PROVIDERS: Emergency Provider Emergency Medicine; PCP Internal Medicine
DX: J06.9 Acute upper respiratory infection, unspecified (principal); J45.909 Unspecified asthma, uncomplicated; I10 Essential (primary) hypertension; K21.9 Gastro-esophageal reflux disease without esophagitis; Z79.899 Other long term (current) drug therapy
CPT/HCPCS: 71045; 80048; 83880; 84484; 85025; 85379; 87635; 93005; 94640; 94799; 96374; 99285; A4216; U0003

== ENCOUNTER → 2020-08-01 09:13 | Outpatient (CLI) | payer OTHER, SELFPAY ==
[2020-07-14 08:25] VITALS: BMI 31.9
--- NOTE | 2020-08-01 09:25 | RAD_ITS ---
STUDY: X-RAY CHEST REASON FOR EXAM: Male, 45 years old. BRONCHITIS F/U, NO CURRENT COMPLAINTS TECHNIQUE: 2 views COMPARISON: Prior chest radiograph of 07/14/2020, 05/01/2019 and 07/16/2014 FINDINGS: The lungs are clear and expanded. Minimal lingular scarring stable from 2014. Normal size heart. Normal mediastinum and mickey. Normal visualized pulmonary arteries. Normal visualized aortic arch and descending thoracic aorta. Normal visualized thoracic spine. Normal visualized ribs, clavicles, and shoulders. There is no demonstrated abnormality of the visualized soft tissue structures of the upper abdomen. RAD/Chest PA and Lateral IMPRESSION: No acute cardiopulmonary findings or changes. Negative for new consolidation, focal atelectasis, cardiomegaly or pleural effusion. Minimal linear scarring unchanged from prior exam of 2013. Electronically Signed: Mary Ann Shannon MD at 21:16 EDT , Service support ,
[2020-08-01 10:40] LABS: BNP,B-Type NATRIURETIC PEPTIDE 472.6 pg/mL (0-100)
== END ==
PROVIDERS: PCP Internal Medicine; Referring Provider Internal Medicine; Visit Provider Internal Medicine
DX: R93.89 Abnormal findings on diagnostic imaging of other specified body structures (principal); R06.02 Shortness of breath
CPT/HCPCS: 36415; 71046; 83880

== ENCOUNTER → 2020-08-11 13:51 | Outpatient (CLI) | payer OTHER, SELFPAY ==
[2020-07-14 08:25] VITALS: BMI 31.9
== END ==
PROVIDERS: PCP Internal Medicine; Referring Provider Internal Medicine; Visit Provider Internal Medicine
DX: R00.2 Palpitations (principal)
CPT/HCPCS: 93225; 93226

== ENCOUNTER → 2020-11-28 07:57 | Outpatient (CLI) | payer OTHER, SELFPAY ==
--- NOTE | 2020-11-28 07:59 | ECHOCS_ITS ---
Reason For Study: Abnormal Cardiac Enzyme Level Procedure This was a 2D Doppler, Color Flow transthoracic echocardiogram. The study was technically difficult. Contrast injection was performed. Exam performed in department. Left Ventricle Moderately dilated left ventricle. Severe global left ventricular systolic dysfunction. The estimated ejection fraction is 20 %. Transmitral doppler flow suggestive of impaired relaxation of left ventricle. Right Ventricle Normal RV size. Normal systolic function. Atria The left atrium is mildly enlarged. Normal right atrium. No doppler evidence for ASD. Mitral Valve There is no mitral annular calcification. Mild diffuse mitral valve thickening. Mild (1+) eccentric mitral valve insufficiency. Tricuspid Valve Normal tricuspid valve. Trivial tricuspid valve insufficiency. Unable to estimate RV systolic pressure/pulmonary artery pressure due to technically difficult study. Aortic Valve Trisinus/trileaflet aortic valve. Normal aortic valve. Pulmonic Valve The pulmonic valve is not well visualized. Great Vessels Normal sized aortic root. Pericardium/Pleural No pericardial effusion. Medication 22 gauge I.V. with prn adaptor inserted into right arm. Diluted definity 3ml given slow IV push to enhance endocardial definition. MMode/2D Measurements & Calculations LVIDd: 6.5 cm IVSd: 1.0 cm Ao root diam: 3.3 cm LVIDs: 6.0 cm LVPWd: 1.0 cm LA dimension: 5.0 cm FS: 7.4 % LAV(MOD-bp): 62.4 ml LVAd ap4: 56.3 cm2 SV(MOD-sp4): 66.9 ml LAV(MOD-bp) Indexed: 28.4 ml/m2 EDV(MOD-sp4): 273.6 ml LAV(MOD-sp2): 66.8 ml EDV(sp4-el): 283.1 ml LAV(MOD-sp4): 51.4 ml LVAs ap4: 45.6 cm2 ESV(MOD-sp4): 206.6 ml ESV(sp4-el): 217.2 ml EF(MOD-sp4): 24.5 % EF(sp4-el): 23.3 % SV(sp4-el): 65.9 ml LA A4 area: 19.7 cm2 RA A4 area: 13.6 cm2 Time Measurements MV dec time: 0.21 sec Doppler Measurements & Calculations MV E max theodore: 72.5 cm/sec Lat Peak E' Theodore: 7.6 cm/sec Med Peak E' Theodore: 7.0 cm/sec MV A max theodore: 89.0 cm/sec E/E' lat: 9.5 E/E' med: 10.3 MV E/A: 0.81 MV V2 max: 99.2 cm/sec MV P1/2t max theodore: 87.9 cm/sec Ao V2 max: 88.4 cm/sec MV max P.9 mmHg MV P1/2t: 52.6 msec Ao max P.1 mmHg MV V2 mean: 61.5 cm/sec MV mean P.8 mmHg MV dec slope: 489.8 cm/sec2 MV V2 VTI: 18.4 cm MVA(P1/2t): 4.2 cm2 LV V1 max: 83.6 cm/sec PA V2 max: 80.9 cm/sec LV V1 max P.8 mmHg Interpretation Summary The study was technically difficult. Contrast injection was performed. Moderately dilated left ventricle. Severe global left ventricular systolic dysfunction. The estimated ejection fraction is 20 %. The left atrium is mildly enlarged. Mild diffuse mitral valve thickening. Mild (1+) eccentric mitral valve insufficiency. Trivial tricuspid valve insufficiency. Unable to estimate RV systolic pressure/pulmonary artery pressure due to technically difficult study. Transmitral doppler flow suggestive of impaired relaxation of left ventricle Ordering Physician: Rula Denny Referring Physician: Rula Denny Performed By: Stanford Beaulieu RCS
== END ==
PROVIDERS: PCP Internal Medicine; Referring Provider Internal Medicine; Visit Provider Internal Medicine
DX: R74.8 Abnormal levels of other serum enzymes (principal)
CPT/HCPCS: 93306; Q9957; C8929

== ENCOUNTER 2020-11-28 14:44 | Emergency (ER) | payer OTHER, SELFPAY ==
[2020-11-28 14:45] VITALS: BP 167/100; PULSE 98; RESP 18; TEMP 36.7; O2SAT 100; BMI 33.5
[2020-11-28 15:01] VITALS: O2SAT 100
--- NOTE | 2020-11-28 15:01 | RAD_ITS ---
STUDY: X-RAY CHEST REASON FOR EXAM: Male, 45 years old. EDEMA LEFT ANKLE, LEFT CHEST TIGHTNESS, ABNORMAL ECHO TECHNIQUE: Single AP portable view of the chest. COMPARISON: Comparison is made with prior study dated 08/01/2020. FINDINGS: EKG electrodes are seen. The lungs are clear and expanded. There is no demonstrated pleural abnormality. Normal size heart. Normal mediastinum and mickey. Normal visualized pulmonary arteries. Normal visualized aortic arch and descending thoracic aorta. Normal visualized thoracic spine. Normal visualized ribs, clavicles, and shoulders. There is no demonstrated abnormality of the visualized soft tissue structures of the upper abdomen. RAD/Chest 1 View (Portable) IMPRESSION: Normal x-ray examination of the chest. Electronically Signed: Jareth Bajwa, at 15:29 EST , Service support ,
--- NOTE | 2020-11-28 15:01 | EKG12_ITS ---
Test Reason : POTENTIAL CATH Blood Pressure : / mmHG Vent. Rate : 100 BPM Atrial Rate : 100 BPM P-R Int : 162 ms QRS Dur : 096 ms QT Int : 414 ms P-R-T Axes : 025 040 -09 degrees QTc Int : 534 ms Normal sinus rhythm Nonspecific ST abnormality Prolonged QT Abnormal ECG Confirmed by BROOKS WARNER, WILFRIDO ([id number]), film and video editor FAY BALNC ([id number]) on 12/01/2020 9:41:41 AM Referred By: DC Confirmed By:WILFRIDO GUY MD
[2020-11-28] MEDS: Aspirin 81 MG TAB.CHEW 324 MG PO (15:13)
[2020-11-28 15:22] LABS: Absolute Lymphocyte Count 2.94 X10^3/uL (0.83-4.51); Absolute Neutrophil Count 5.3 X10^3/uL (2.0-7.7); Basophil# 0.04 X10^3/uL; Basophil% 0.4 % (0-1); Eosinophil# 0.15 X10^3/uL; Eosinophils% 1.6 % (0-5); Hematocrit 44.8 % (40-54); Hemoglobin 14.7 g/dL (13.0-16.5); Lymphocyte # 2.94 X10^3/ul (4.0); Mean Corp Hgb Conc 32.8 g/dL (32-36); Mean Corpuscular Hgb 30.1 pg (27.0-32.0); Mean Corpuscular Volume 91.8 fL (80-94); Mean Platelet Vol. 9.8 fl (6.2-12.0); Monocyte% 8.7 % (0-10); NRBC Flagged by Analyzer 0 % (0-5); Neutrophil # 5.25 X10^3/uL (2.7-7.7); Neutrophil % 57.1 % (47-70); Platelet Count 344 K/mm3 (150-450); RBC Distribution Width CV 12.3 % (11.6-14.6); RBC Distribution Width SD 41.3 fl (35.1-43.9); Red Blood Count 4.88 M/mm3 (4.6-6.2); White Blood Count 9.2 K/mm3 (4.4-11.0)
[2020-11-28 15:41] LABS: Prothrombin Time (Protime)PT. 12.4 SECONDS (11.7-14.9)
[2020-11-28 15:42] LABS: Partial Thromboplast Time 28.1 Seconds (24.1-36.2)
[2020-11-28 15:57] LABS: Anion Gap 5 (5-15); BUN 13 mg/dL (7-18); BUN/Creat Ratio 10.7 RATIO (10-20); Chloride 104 mmol/L (98-107); Creatinine, Serum 1.21 mg/dL (0.70-1.30); EST Glomerular Filtration Rate 69 mL/min (>60); Est Glom Filt Rate - Afr Amer 84 mL/min (>60); Estimated Creatinine Clearance 81.28 ml/min; Glucose 122 mg/dL (74-106); Magnesium 2.1 mg/dL (1.6-2.6); Sodium Level 140 mmol/L (136-145); Thyroid Stim Hormone (TSH) 0.56 uIU/mL (0.358-3.74)
--- NOTE | 2020-11-28 16:20 | ED.VISSUMM ---
- ER Visit Summary Date of Service: 11/28/20 Chief Complaint: Abnormal testing History of Present Illness: The patient is a 45 M who was referred to the ED for cardiac evaluation. He has been having palpitations and lower extremity edema. He had an outpatient echo today that showed 20% ejection fraction with left ventricular dysfunction and global left ventricular enlargement. He has a history of hypertension. He has been taking blood pressure medications as well as Lasix 20 mg daily. No history of coronary disease, CHF, cardiomyopathy. Physical Examination: Blood pressure 167/100. Otherwise vitals are fine. He is in no acute distress. He has trace lower extremity peripheral edema which is symmetric and nontender. Heart is regular. Lungs are clear. Abdomen is soft. Skin appears normal. Test Results: EKG shows sinus rhythm at a rate of [address]-T wave changes. QTC 534. Emergency Department Course and Treatment: EKG was done. Patient was placed on the monitor. He was treated with aspirin. Lab work showed a normal CBC. His potassium was 3.0 and glucose was 122. Coags normal. BMP normal. Troponin normal. Magnesium normal. Chest x-ray normal. Patient was discussed with Dr. Hoang. Patient likely has cardiomyopathy. He will need an outpatient cath. I do not believe he needs admission or emergent catheterization. He has follow-up with Dr. Hoang on Tuesday. We will add aspirin 81 mg daily, increase his losartan to 50 mg daily. He is currently on metoprolol tartrate 25 mg, and he will take that twice a day. Patient was notified his potassium was low. He was treated with oral replacement and advised that he will need follow-up. Return for chest pain or any other complications. Otherwise follow-up as planned on Tuesday. Treatment Plan: As above Disposition: Discharge Impression: Cardiomyopathy, hypokalemia This note was generated with [employer] dictation software. It may contain incorrect words, spelling, and punctuation that were not noted in review of the chart prior to signing ED Disposition - Plan for ED Patient: Referrals: Rula Denny DO [Primary Care Provider] -
[2020-11-28 16:23] VITALS: BP 132/76; PULSE 108; RESP 20; O2SAT 95
--- NOTE | 2020-11-28 16:24 | ED.DEP ---
ED Disposition - Plan for ED Patient: Instructions: Cardiomyopathy Prescriptions: Aspirin 81 mg PO DAILY #30 tab.chew Prescription Printed Losartan Potassium 50 mg PO DAILY #30 tab Prescription Printed Metoprolol Tartrate 25 mg PO BID #60 tab Prescription Printed Referrals: Ridge Hoang MD [STAFF PHYSICIAN] -
== END 2020-11-28 16:32 | disposition home or self-care (01) ==
LOC: ED 15:53
PROVIDERS: Emergency Provider Emergency Medicine; PCP Internal Medicine
DX: I42.9 Cardiomyopathy, unspecified (principal); E87.6 Hypokalemia; I10 Essential (primary) hypertension; E78.00 Pure hypercholesterolemia, unspecified; Z79.899 Other long term (current) drug therapy
CPT/HCPCS: 71045; 80048; 83735; 83880; 84443; 84484; 85025; 85610; 85730; 93005; 99285; A4216

== ENCOUNTER → 2020-12-01 12:35 | Outpatient (CLI) | payer OTHER, SELFPAY ==
[2020-12-01 11:37] VITALS: BMI 32.8
[2020-12-01 14:02] LABS: Anion Gap 4 (5-15); BUN 12 mg/dL (7-18); BUN/Creat Ratio 10.5 RATIO (10-20); Calcium,Total 9.1 mg/dL (8.5-10.1); Chloride 106 mmol/L (98-107); Creatinine, Serum 1.14 mg/dL (0.70-1.30); EST Glomerular Filtration Rate 74 mL/min (>60); Est Glom Filt Rate - Afr Amer 90 mL/min (>60); Glucose 110 mg/dL (74-106); Sodium Level 139 mmol/L (136-145)
== END ==
PROVIDERS: PCP Internal Medicine; Referring Provider Internal Medicine Cardiovascular Disease; Visit Provider Internal Medicine Cardiovascular Disease
DX: E78.00 Pure hypercholesterolemia, unspecified (principal); R06.00 Dyspnea, unspecified; R60.9 Edema, unspecified; I42.9 Cardiomyopathy, unspecified; I10 Essential (primary) hypertension
CPT/HCPCS: 36415; 80048

== ENCOUNTER 2020-12-09 08:49 | Day surgery (SDC) | payer OTHER, SELFPAY ==
[2020-12-01 11:37] VITALS: BMI 32.8
[2020-12-08 10:17] VITALS: BMI 32.8
--- NOTE | 2020-12-09 06:57 | HP_ITS ---
HPI HPI History of Present Illness Details: This is a 45-year-old white male who presents for outpatient cardiovascular consultation based upon the concern of dyspnea on exertion, lower extremity peripheral pitting edema, and an abnormal transthoracic echocardiogram suggesting an underlying dilated cardiomyopathy superimposed upon a history of hyperlipidemia and hypertension. He states overall from a cardiac standpoint he noted since the summer 2019 he has felt somewhat more short of breath and dyspneic with activity, at one time may have had orthopnea, has had intermittent lower extremity peripheral pitting edema, has had intermittent vague chest discomforts for which she was evaluated at the emergency department with no obvious cardiovascular issues per his report, and now has undergone evaluation with a transthoracic echocardiogram suggesting what appears to be a dilated left ventricle with overall global left ventricular systolic dysfunction with an estimated LVEF of 20%. He states following that finding on 11-28-2020 he was instructed by his PCP office to present to the emergency Fu for any concerns which he did based upon concerns of his history of shortness of breath/dyspnea and lower extremity edema. His emergency department evaluation was reported as unremarkable other than his potassium level was low potentially secondary to his HCTZ therapy. He was supplemented with potassium. He was released home for cardiovascular consultation. He does not recall having any illness prior to the onset of his symptoms in the summer 2019. 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 He does not recall undergoing cardiovascular evaluation in the past other than laboratory studies and an ECG. At the moment he does not recall any ongoing orthopnea or PND. He states his lower extremity edema waxes and wanes. There has been no near syncope or syncope. He had an ECG in the office today. He was in sinus rhythm with a nonspecific ST segment abnormality. His transthoracic echocardiogram is as noted below. His chest x-ray from the emergency department on 11-28-2020 demonstrated no acute findings per radiology. Of note in the emergency department his troponin I level was negative. A BNP level was performed which was reported normal at 85.0. Intake Vital Signs 12/01/20 Height 5 ft 11 in 12/01/20 Weight: 235 lb 7 oz 12/01/20 BP 112/78 12/01/20 Blood Pressure Location Lt brachial 12/01/20 Position Sitting 12/01/20 Respiration 16 12/01/20 Pulse 92 12/01/20 Pulse Source Auscultation Intake Visit Reasons: ABN ECHO (DR CARPENTER) Media Executive Required: No Accompanied by: Self Allergies codeine Adverse Reaction (Verified 12/01/20 11:37) Rash Medications Gabapentin [Neurontin] 300 mg PO BID 05/01/19 [History Confirmed 12/01/20] Albuterol IH (ProAir) [Proair Hfa (SP)Vent Pts] 1 - 2 puff INHALATION Q4H PRN PRN 11/23/19 [History Confirmed 12/01/20] Fexofenadine HCl [Shi Allergy] 180 mg PO DAILY 11/23/19 [History Confirmed 12/01/20] Multivitamin with Minerals [Multiple Vitamin] 1 ea PO DAILY 11/23/19 [History Confirmed 12/01/20] Omeprazole [Prilosec] 20 mg PO DAILY PRN 11/23/19 [History Confirmed 12/01/20] Aspirin 81 mg PO DAILY #30 tab.chew 11/28/20 [Rx Confirmed 12/01/20] Losartan Potassium 50 mg PO DAILY #30 tab 11/28/20 [Rx Confirmed 12/01/20] Zinc 50 mg PO DAILY 11/28/20 [History Confirmed 12/01/20] hydrochlorothiazide 25 mg tablet 25 mg PO DAILY 12/01/20 [History Confirmed 12/01/20] melatonin 5 mg tablet 5 mg PO HS PRN 12/01/20 [History Confirmed 12/01/20] metoprolol tartrate 25 mg tablet 25 mg PO BID tab 12/01/20 [History Confirmed 12/01/20] rosuvastatin 10 mg tablet 10 mg PO DAILY 12/01/20 [History Confirmed 12/01/20] PFSH Medical History Pure hypercholesterolemia (Chronic) Essential hypertension (Chronic) Abnormal echocardiogram (Acute) Dog bite of scalp (Acute) Scalp laceration (Acute) Surgical History History of hernia repair (Resolved) History of mandibular surgery (Resolved) History of rotator cuff surgery (Resolved) Family History Grandfather Valvular heart disease Mother Hypertension Father Hypertension Social History (Updated 12/01/20 @ 12:[address] Ridge Hoang MD) Smoking Status: Never smoker alcohol intake: current details: rare substance use type: does not use caffeine: Yes Type: coffee Number of servings: 2 ROS Const Const: Positive for fatigue and weakness; negative for frequent falls, excessive sweating, weight gain or weight loss Eyes Eyes: Negative for transient loss of vision, blurry vision or change in vision ENT ENT: Negative for dizziness or balance problems Cardio Chest Pain: No Palpitations: Yes (daily) feels like its: other (flutter) Edema: Right (LE) Muscle aches with walking: None Resp Respiratory: Positive for SOB with activity (occasional); negative for SOB at rest GI GI: Negative vomiting or vomiting blood/hematemesis : Negative for hematuria Musc Musc: Negative for muscle aches/ myalgia, muscle weakness, joint pain or balance problems Skin Skin: Negative non-healing lesions or rash Neuro Neuro: Positive for lightheadedness (rare) and weakness; negative for dizziness, orthostatic symptoms, frequent falls or blurry vision Ronni Hematologic/Lymphatic: Negative for easy bleeding Endo Endo: Positive for fatigue; negative for excessive sweating Psych Psych: Negative for anxiety or depression Allergy Allergy/Immunology: Negative for hives, Negative for rash Cardiology Exam Const Appearance: cooperative, healthy appearing, comfortable, no acute distress, well developed and well groomed Nutritional Appearance: obese Orientation: alert, awake and oriented x3 Head Head: normal to inspection, normocephalic and atraumatic Ears: hearing grossly normal bilaterally Nose: external nose normal Face and Sinus: face symmetric Eyes Eyelids: eyelids normal Conjunctivae: conjunctivae normal Pupils: PERRL EOM: EOM intact bilaterally Neck Neck: normal visual inspection and full ROM Carotids: normal carotid upstroke Chest Chest inspection: normal inspection of the chest, symmetric chest movement and normal respiratory effort Auscultation: Bilateral: Clear to Auscultation Cardio Palpation: abnormal PMI Rate: regular rate Rhythm: regular rhythm Heart sounds: S1 normal and S2 normal GI GI: normal to inspection, soft, bowel sounds present and obese Neuro General: alert, awake and moves all extremities Skin Skin: no rashes or lesions noted Extremities Pulses: Normal: Right Radial Pulse, Left Radial Pulse Lower Extremity Edema: None: Bilateral Psych Psychological: normal affect Assessment & Plan 1. Cardiomyopathy, unspecified type I42.9 Plan At the present time the etiology of his abnormal echocardiogram suggesting an underlying cardiomyopathy is unclear. He does not recall an illness prior to the onset of his symptoms were these findings. However this does not necessarily exclude a previous potential viral event. He does not appear to have other medical issues thus far that would explain it. He does have cardiovascular risk factors which would increase the risk of having underlying CAD which could contribute to such. At the moment he will continue medical therapy. As his evaluation progresses over time his medications may need to be adjusted. This could include altering his beta-hoa to metoprolol XL or changing it to carvedilol. Also his ARB may be increased and/or change to an alternative agent. He will be asked to have a follow-up BMP to reassess his electrolytes and adjust his diuretics and potassium level accordingly. It was felt prudent that he be evaluated, especially based upon a young age, with his cardiovascular risks, his symptoms, and these findings, in the cardiac catheterization laboratory for any obvious evidence of underlying CAD that would require revascularization therapy to assist with return of his left ventricular systolic function. Depending upon his future left ventricular function/LVEF he may need to be considered for future ICD therapy and future tertiary care center evaluation for consideration for advanced heart failure therapy and/or heart transplantation evaluation. Orders Orders: Left Heart Cath/COR/LV Percut Today Basic Metabolic Profile (BMP) Today 2. Pure hypercholesterolemia E78.00 Plan He will continue lipid-lowering therapy. A copy of his lipid labs will be appreciated for continuity of care. Orders Orders: Left Heart Cath/COR/LV Percut Today Basic Metabolic Profile (BMP) Today 3. Essential hypertension I10 Plan He will continue antihypertensive therapy with adjustment as deemed appropriate. Orders Orders: Left Heart Cath/COR/LV Percut Today Basic Metabolic Profile (BMP) Today 4. Dyspnea on exertion R06.00 Plan Again he has had symptoms of dyspnea on exertion. This may be related to his cardiomyopathy. He will continue medical management and further evaluation as noted. Orders Orders: Left Heart Cath/COR/LV Percut Today Basic Metabolic Profile (BMP) Today 5. Localized edema R60.0 Plan He has had localized lower extremity peripheral pitting edema. At the moment on examination he does not appear to have any edema. He does state it waxes and wanes. Thus he will continue his medical therapy and evaluation. Plan Detail Other Orders Orders: 12 Lead EKG performed by BMS Today R93.1 Left Heart Cath/COR/LV Percut Today R60.9 Basic Metabolic Profile (BMP) Today R60.9 Additional Comments The above was discussed with him and he was agreeable to this approach. The cardiac catheterization procedure was discussed with respect to risks and benefits and pros and cons. He was agreeable to this approach. Follow Up 3 Months (PFM) Coding Level of Care Code Off vis,new,level 5 Diagnoses Cardiomyopathy, unspecified type I42.9 ??Cardiomyopathy type: unspecified Pure hypercholesterolemia E78.00 Essential hypertension I10 Dyspnea on exertion R06.00 Localized edema R60.0 ??Edema type: localized Coding Level of Care Code Off vis,new,level 5 Diagnoses Cardiomyopathy, unspecified type I42.9 ??Cardiomyopathy type: unspecified Pure hypercholesterolemia E78.00 Essential hypertension I10 Dyspnea on exertion R06.00 Localized edema R60.0 ??Edema type: localized Supplemental Info Supplemental Information Echocardiogram: 11-28-2020 Interpretation Summary The study was technically difficult. Contrast injection was performed. Moderately dilated left ventricle. Severe global left ventricular systolic dysfunction. The estimated ejection fraction is 20 %. The left atrium is mildly enlarged. Mild diffuse mitral valve thickening. Mild (1+) eccentric mitral valve insufficiency. Trivial tricuspid valve insufficiency. Unable to estimate RV systolic pressure/pulmonary artery pressure due to technically difficult study. Transmitral doppler flow suggestive of impaired relaxation of left ventricle Labs LDL Cholesterol 144 mg/dL (0-130) H 09/21/16 HDL Cholesterol 64 mg/dL (40-) 09/21/16 Triglycerides 175 mg/dL (-199) 09/21/16 VLDL Cholesterol 35 mg/dL (5-40) 09/21/16 Diagnostics Electrocardiogram 12/01/20 Echocardiogram 11/28/20 Chest X-Ray 11/28/20 COVID (Procedure Consent) Procedure Criteria Procedure Criteria: Yes Elective The surgeon/proceduralist and patient have discussed in detail the risk of exposure to and/or potential harm posed by the COVID-19 virus with having a surgery/procedure at this time versus the risk of? delaying the surgery/procedure. It is not possible to know either the risk of delaying the surgery or procedure or chance of getting an infection with perfect accuracy, but a joint decision was made between the patient and the surgeon/proceduralist ?to proceed at this time with the scheduled surgery/procedure as indicated on the consent form. I have re-examined the patient. There are no clinical changes since date of exam. I have re-examined the patient. There are no clinical changes since date of exam.
--- NOTE | 2020-12-09 12:21 | CL.D_ITS ---
Patient Name: GADIEL CARVAJAL Study Date: 12/09/2020 Performing: Ridge Hoang MD Ht: 70.86 inches 180 cm : 1975 Wt: 235.89 lbs 107 kg Age: 45 Gender: male BSA: 2.26 PROCEDURE(S) PERFORMED AZ92-QVF/COR/LV CLINICAL PROFILE AND INDICATIONS Indications: LV Dysfunction, Cardiomyopathy Heart Failure: None Stress/Imaging Stress/Image Study Performed: No Angina Classification Anginal Classification w/in 2 Weeks: Anginal Equivalent Dyspnea CAD Presentations: Other: dyspnea on exertion CONCLUSIONS Elevated Left Ventricular End Diastolic Pressure Global LV systolic dysfunction- Severe LVEF: by LV gram 20 % Normal coronary arteries RECOMMENDATIONS Risk factor modification Medical therapy DESCRIPTION OF PROCEDURE The patient arrived to the procedure lab. The risks and benefits of the procedure as well as a full d escription of our services here and current unavailability of surgical backup were fully explained to the patient and/or their significant other prior to the catheterization. The Timeout was completed, verifying the correct patient and procedure. The patient's procedural site was prepped and draped in the usual fashion. Local anesthetic was given subcutaneously to right radial region with Lidocaine 2% . Using a modified Seldinger technique, arterial access was obtained via the right radial artery, a 6 Fr sheath was inserted. Right Coronary Artery selective angiography was performed in multiple views using a 5 Fr. 4.0 [place] catheter. Left Coronary Artery selective angiography was performed in multipl e views using a 5 Fr. 4.0 [place] catheter. Left Ventriculography was performed in MAC projection using a 5 Fr. [place] catheter. LV to AO pullback pressures were then recorded.The arterial sheath was pulled and a TR Band was applied for hemostasis CORONARY ANGIOGRAPHY DOMINANCE: Left Dominant LEFT HEART ASSESSMENT Left Ventricular Ejection Fraction: by LV Gram 20 % Global Hypokinesis - Severe Elevated Left Ventricular End Diastolic Pressure LVEDP: 23 mmHg LEFT MAIN: Angiographically normal LEFT ANTERIOR DESCENDING ARTERY: Angiographically normal CIRCUMFLEX ARTERY: Angiographically normal RIGHT CORONARY ARTERY: Angiographically normal AORTIC ROOT: Angiographically normal COMPLICATIONS No Complications PROCEDURE MEDICATIONS Versed 1 mg IV Fentanyl 50 mcg IV Versed 1 mg IV Fentanyl 50 mcg IV Oxygen: 2 L/min via nasal cannula Heparin diluted in 23cc Heparinized saline. Patient given 10cc IA of this solution. 12/09/2020 10:31: 11 Verapamil 2.5mg, Ntg 100mcgs, 2000 units of Heparin diluted in 23cc Heparinized saline. Patient give n 10cc IA of this solution. 12/09/2020 10:31:11 SUMMARY OF HEMODYNAMIC DATA Time AIR REST ECG 09:05:45 AO 124/79 (92) SA 10:34:36 AO 114/83 (96) 10:55:56 LV 123/4, 28 11:04:52 LV 122/2, 23 11:04:58 LV 126/6, 29 11:06:17 LV 123/5, 31 11:06:24 LVp 127/3, 31 11:06:30 AOp 120/74 (96) 11:06:35 ECG 11:22:46 Signed By Ridge Hoang MD On 12/09/2020 12:21:08 Ridge Hoang MD
== END 2020-12-09 12:50 | disposition home or self-care (01) ==
LOC: CLSP 08:50
PROVIDERS: PCP Internal Medicine; Referring Provider Internal Medicine Cardiovascular Disease; Visit Provider Internal Medicine Cardiovascular Disease
DX: I11.9 Hypertensive heart disease without heart failure (principal); E78.00 Pure hypercholesterolemia, unspecified; E66.9 Obesity, unspecified; Z79.899 Other long term (current) drug therapy
CPT/HCPCS: 93458; 99152; 99153; J7040; Q9967; C1769; C1894

== ENCOUNTER 2021-01-26 10:00 | Outpatient (RCR) | payer OTHER, SELFPAY ==
[2021-01-26] MEDS: COVID-19 VACC, MRNA(PFIZER)/PF 30 MCG/0.3 ML SYRINGE IM (12:18)
[2021-02-17] MEDS: COVID-19 VACC, MRNA(PFIZER)/PF 30 MCG/0.3 ML SYRINGE IM (12:12)
== END 2021-04-28 23:59 ==
LOC: IMMUN 10:00
PROVIDERS: PCP Internal Medicine; Visit Provider Family Medicine
DX: Z23 Encounter for immunization (principal)
CPT/HCPCS: 0001A; 0002A; 91300

== ENCOUNTER → 2021-02-20 10:44 | Outpatient (CLI) | payer OTHER, SELFPAY ==
[2021-02-20 12:55] LABS: Anion Gap 7 (5-15); BUN 14 mg/dL (7-18); BUN/Creat Ratio 13.1 RATIO (10-20); Calcium,Total 8.7 mg/dL (8.5-10.1); Chloride 106 mmol/L (98-107); Creatinine, Serum 1.07 mg/dL (0.70-1.30); EST Glomerular Filtration Rate 80 mL/min (>60); Est Glom Filt Rate - Afr Amer 97 mL/min (>60); Glucose 113 mg/dL (74-106); Potassium 3.7 mmol/L (3.5-5.1); Sodium Level 140 mmol/L (136-145)
== END ==
PROVIDERS: PCP Internal Medicine; Referring Provider Nurse Practitioner Family; Visit Provider Nurse Practitioner Family
DX: E78.00 Pure hypercholesterolemia, unspecified (principal); I10 Essential (primary) hypertension; I42.9 Cardiomyopathy, unspecified
CPT/HCPCS: 36415; 80048

== ENCOUNTER → 2021-02-26 09:47 | Outpatient (CLI) | payer OTHER, SELFPAY ==
[2020-12-25 15:34] VITALS: BMI 32.8
--- NOTE | 2021-02-26 09:49 | ECHOD_ITS ---
Reason For Study: CHF Procedure This was a 2D Doppler, Color Flow transthoracic echocardiogram. The exam was of adequate technical quality. Exam performed in department. Left Ventricle Moderately dilated left ventricle. Apical false tendon noted. Moderately severe global left ventricular systolic dysfunction. The estimated ejection fraction is 30 %. No evidence for diastolic dysfunction. Right Ventricle Normal RV size. Normal systolic function. Atria Normal left atrium. Normal right atrium. No doppler evidence for ASD. Mitral Valve There is no mitral annular calcification. Normal mitral valve. Trivial mitral valve insufficiency. Tricuspid Valve Normal tricuspid valve. Trivial tricuspid valve insufficiency. Unable to estimate RV systolic pressure due to insufficient tricuspid regurgitant envelope. Aortic Valve Trisinus/trileaflet aortic valve. Normal aortic valve. Pulmonic Valve The pulmonic valve is not well visualized. Trivial pulmonic valve insufficiency. Great Vessels Normal sized aortic root. Pericardium/Pleural No pericardial effusion. MMode/2D Measurements & Calculations LVIDd: 5.9 cm IVSd: 0.83 cm Ao root diam: 3.2 cm LVIDs: 5.2 cm LVPWd: 0.91 cm RVDd: 3.4 cm FS: 12.3 % LAV(MOD-bp): 59.9 ml LVAd ap4: 45.4 cm2 SV(MOD-sp4): 82.7 ml LAV(MOD-bp) Indexed: 26.5 ml/m2 EDV(MOD-sp4): 179.0 ml LAV(MOD-sp2): 52.6 ml EDV(sp4-el): 184.7 ml LAV(MOD-sp4): 57.5 ml LVAs ap4: 30.6 cm2 ESV(MOD-sp4): 96.3 ml ESV(sp4-el): 96.6 ml EF(MOD-sp4): 46.2 % EF(sp4-el): 47.7 % SV(sp4-el): 88.1 ml LA A4 area: 21.5 cm2 LA dimension(2D): 4.1 cm RA A4 area: 12.9 cm2 Time Measurements MV dec time: 0.25 sec Doppler Measurements & Calculations MV E max theodore: 49.9 cm/sec Lat Peak E' Theodore: 4.5 cm/sec Med Peak E' Theodore: 5.4 cm/sec MV A max theodore: 93.7 cm/sec E/E' lat: 11.0 E/E' med: 9.3 MV E/A: 0.53 Ao V2 max: 112.8 cm/sec PA V2 max: 94.2 cm/sec Ao max P.1 mmHg ECHO/Echo Complete Interpretation Summary Moderately dilated left ventricle. Moderately severe global left ventricular systolic dysfunction. The estimated ejection fraction is 30 %. Apical false tendon noted. Trivial mitral valve insufficiency. Trivial tricuspid valve insufficiency. Trivial pulmonic valve insufficiency. Unable to estimate RV systolic pressure due to insufficient tricuspid regurgita nt envelope. No evidence for diastolic dysfunction. Ordering Physician: Frank Hong Referring Physician: LESLEY CARPENTER Performed By: Homa Chavez, EDER, RVT
== END ==
PROVIDERS: PCP Internal Medicine; Referring Provider Nurse Practitioner Family; Visit Provider Nurse Practitioner Family
DX: I42.9 Cardiomyopathy, unspecified (principal); I10 Essential (primary) hypertension; E78.00 Pure hypercholesterolemia, unspecified
CPT/HCPCS: 93306

== ENCOUNTER → 2021-04-09 10:48 | Outpatient (CLI) | payer OTHER, SELFPAY ==
--- NOTE | 2021-04-09 10:50 | ECHOD_ITS ---
Reason For Study: CHF Procedure This was a 2D Doppler, Color Flow transthoracic echocardiogram. The exam was of adequate technical quality. Exam performed in department. Left Ventricle Moderately dilated left ventricle. Apical false tendon noted. Moderate global left ventricular systolic dysfunction. The estimated ejection fraction is 30 %. Transmitral doppler flow suggestive of impaired relaxation of left ventricle. Right Ventricle Normal RV size. Normal systolic function. Atria The left atrium is mildly enlarged. Normal right atrium. No doppler evidence for ASD. Mitral Valve There is no mitral annular calcification. Normal mitral valve. Trivial mitral valve insufficiency. Tricuspid Valve Normal tricuspid valve. Trivial tricuspid valve insufficiency. Unable to estimate RV systolic pressure due to insufficient tricuspid regurgitant envelope. Aortic Valve Trisinus/trileaflet aortic valve. Normal aortic valve. Pulmonic Valve The pulmonic valve is not well visualized. Trivial pulmonic valve insufficiency. Great Vessels Normal sized aortic root. Pericardium/Pleural No pericardial effusion. MMode/2D Measurements & Calculations LVIDd: 5.9 cm IVSd: 0.83 cm Ao root diam: 3.3 cm LVIDs: 4.7 cm LVPWd: 1.0 cm RVDd: 2.7 cm FS: 20.7 % LAV(MOD-bp): 68.8 ml LVAd ap4: 41.5 cm2 LVAd ap2: 40.8 cm2 LAV(MOD-bp) Indexed: 30.4 ml/m2 LVLd ap4: 9.1 cm LVLd ap2: 9.1 cm LAV(MOD-sp2): 67.5 ml EDV(MOD-sp4): 157.8 ml EDV(MOD-sp2): 154.6 ml LAV(MOD-sp4): 67.5 ml EDV(sp4-el): 160.6 ml EDV(sp2-el): 154.7 ml LVAs ap4: 27.6 cm2 LVAs ap2: 29.4 cm2 LVLs ap4: 7.5 cm LVLs ap2: 8.3 cm ESV(MOD-sp4): 84.2 ml ESV(MOD-sp2): 88.8 ml ESV(sp4-el): 85.9 ml ESV(sp2-el): 88.7 ml EF(MOD-sp4): 46.6 % EF(MOD-sp2): 42.6 % EF(sp4-el): 46.5 % SV(MOD-sp4): 73.6 ml SV(MOD-sp2): 65.8 ml SV(sp4-el): 74.7 ml LA dimension(2D): 4.2 cm LA A4 area: 21.5 cm2 RA A4 area: 15.1 cm2 Time Measurements MV dec time: 0.19 sec Doppler Measurements & Calculations MV E max theodore: 60.2 cm/sec Lat Peak E' Theodore: 6.0 cm/sec Med Peak E' Theodore: 7.0 cm/sec MV A max theodore: 86.0 cm/sec E/E' lat: 10.0 E/E' med: 8.6 MV E/A: 0.70 Ao V2 max: 101.8 cm/sec LV V1 max: 76.4 cm/sec PA V2 max: 88.1 cm/sec Ao max P.1 mmHg LV V1 max P.3 mmHg ECHO/Echo Complete Interpretation Summary Moderately dilated left ventricle. Moderate global left ventricular systolic dysfunction. The estimated ejection fraction is 30 %. Apical false tendon noted. The left atrium is mildly enlarged. Trivial mitral valve insufficiency. Trivial tricuspid valve insufficiency. Trivial pulmonic valve insufficiency. Unable to estimate RV systolic pressure due to insufficient tricuspid regurgita nt envelope. Transmitral doppler flow suggestive of impaired relaxation of left ventricle Ordering Physician: Frank Hong Referring Physician: Rula Denny Performed By: Maricruz Huynh, EDER, RVT
--- NOTE | 2021-04-09 18:07 | STRESSREP ---
Stress Test Report Date: 04-09-2021 Procedure: Exercise tolerance test Indications: Palpitations; non-CAD related cardiomyopathy Consent: Per the patient Procedure: The patient exercised on a Jimbo protocol for 8 minutes and 30 seconds completing Stage II and 2 minutes and 30 seconds of Stage III achieving a peak heart rate of 164 bpm (92% predicted maximal heart rate) with a peak blood pressure 170/68 mmHg and a peak MET capacity of approximately 9 MET's. The baseline ECG demonstrated normal sinus rhythm; nonspecific ST/T wave abnormality. The peak exercise ECG demonstrated continued nonspecific ST/T wave abnormality. There was a rare PVC during exercise. The functional capacity was considered good. The patient had no complaint of chest discomfort during exercise or recovery. The examination was discontinued secondary to dyspnea. Impression: 1. Technically adequate (percent predicted maximal heart rate greater than 85%) exercise tolerance test 2. Peak exercise ECG with continued nonspecific ST/T wave abnormality 3. There was a rare PVC during exercise This note was generated with [email or web address] software. It may contain incorrect words, spelling, and punctuation that were not noted in checking the note before signing.
== END ==
PROVIDERS: PCP Internal Medicine; Referring Provider Nurse Practitioner Family; Visit Provider Nurse Practitioner Family
DX: I42.9 Cardiomyopathy, unspecified (principal); R93.1 Abnormal findings on diagnostic imaging of heart and coronary circulation; R00.2 Palpitations
CPT/HCPCS: 93017; 93306

== ENCOUNTER → 2021-05-05 07:47 | Outpatient (CLI) | payer OTHER, SELFPAY ==
[2021-04-29 14:51] VITALS: BMI 33.3
--- NOTE | 2021-05-05 07:51 | MRI_ITS ---
STUDY: MRI RIGHT MIDFOOT REASON FOR EXAM: Lateral right foot pain for 2 months, evaluate for fifth metatarsal stress fracture. TECHNIQUE: Standardized fat and water weighted pulse sequences were obtained in all 3 orthogonal planes. COMPARISON: Radiographs 02/20/2021. FINDINGS: Normal talonavicular articulation. Normal calcaneocuboid articulation. Normal navicular-cuneiform articulations. Normal intercuneiform articulations. Normal first tarsometatarsal articulation. Normal Lisfranc ligament. Normal second and third tarsometatarsal articulations. Normal cuboid fourth and cuboid fifth tarsometatarsal articulation. Normal first through fifth metatarsi. Normal tibialis anterior tendon. Normal extensor hallucis longus tendon. Normal extensor digitorum longus tendons. Normal peroneus longus tendon and distal insertion. Normal peroneus brevis tendon and distal insertion. Normal intrinsic muscles of the mid and forefoot region. Normal extensor digitorum brevis muscle. There is a small ganglion cyst dorsal to the proximal fifth metatarsal (inversion recovery sagittal image 5; T2 series 5 image 24) measuring 0.4 x 0.5 cm (AP x length). There is an intermetatarsal neuroma of the third webspace (T1 series 4 image 6) measuring 0.4 cm in transverse dimension. MRI/Lower Ext/No Jt/w/o IMPRESSION: Intermetatarsal neuroma of the third webspace. Small ganglion cyst dorsal to the proximal fifth metatarsal. No demonstrated metatarsal stress fracture. Electronically Signed: Zach Gomez MD at 10:12 EDT Tel , Service support ,
== END ==
PROVIDERS: PCP Internal Medicine; Visit Provider Podiatrist
DX: M84.30XG Stress fracture, unspecified site, subsequent encounter for fracture with delayed healing (principal)
CPT/HCPCS: 73718

== ENCOUNTER → 2021-05-20 15:22 | Outpatient (CLI) | payer OTHER, SELFPAY ==
[2021-04-29 14:51] VITALS: BMI 33.3
[2021-05-20 17:38] LABS: Anion Gap 6 (5-15); BUN 16 mg/dL (7-18); BUN/Creat Ratio 13.7 RATIO (10-20); Calcium,Total 8.5 mg/dL (8.5-10.1); Chloride 110 mmol/L (98-107); Creatinine, Serum 1.17 mg/dL (0.70-1.30); EST Glomerular Filtration Rate 72 mL/min (>60); Est Glom Filt Rate - Afr Amer 87 mL/min (>60); Glucose 89 mg/dL (74-106); Potassium 4.1 mmol/L (3.5-5.1); Sodium Level 142 mmol/L (136-145)
== END ==
PROVIDERS: PCP Internal Medicine; Visit Provider Internal Medicine Cardiovascular Disease
DX: E78.00 Pure hypercholesterolemia, unspecified (principal); I10 Essential (primary) hypertension; I42.0 Dilated cardiomyopathy
CPT/HCPCS: 36415; 80048

== ENCOUNTER → 2021-05-28 20:00 | Outpatient (CLI) | payer OTHER, SELFPAY ==
[2021-04-29 14:51] VITALS: BMI 33.3
== END ==
PROVIDERS: PCP Internal Medicine; Visit Provider Nurse Practitioner Family
DX: G47.10 Hypersomnia, unspecified (principal); I42.0 Dilated cardiomyopathy; E78.00 Pure hypercholesterolemia, unspecified; I10 Essential (primary) hypertension; R93.1 Abnormal findings on diagnostic imaging of heart and coronary circulation
CPT/HCPCS: 95810

== ENCOUNTER → 2021-06-19 09:24 | Outpatient (CLI) | payer OTHER, SELFPAY ==
[2021-06-11 08:44] VITALS: BMI 34.0
--- NOTE | 2021-06-20 07:03 | PFT ---
INTRODUCTION: The patient is a 46-year-old male that presents for pulmonary function studies secondary to a diagnosis of asthma. Respiratory therapy reports good patient effort. Bronchodilators were used during testing. INTERPRETATION: Forced expiration spirometry demonstrates no evidence of a large airways obstructive ventilatory defect. There was no significant response to aerosolized bronchodilators. Spirograms are of good quality and plateau normally. Body plethysmography was performed and reveals lung volumes to be within normal limits. Diffusing capacity by single breath CO is mildly reduced at 72% of predicted. IMPRESSION: Normal spirometry and lung volumes with mild reduction in diffusing capacity. No significant bronchodilator response was noted.
== END ==
PROVIDERS: PCP Internal Medicine; Referring Provider Nurse Practitioner Acute Care; Visit Provider Nurse Practitioner Acute Care
DX: J45.909 Unspecified asthma, uncomplicated (principal)
CPT/HCPCS: 94060; 94726; 94729

== ENCOUNTER → 2021-06-29 20:00 | Outpatient (CLI) | payer OTHER, SELFPAY ==
[2021-06-11 08:44] VITALS: BMI 34.0
== END ==
PROVIDERS: PCP Internal Medicine; Referring Provider Nurse Practitioner Acute Care; Visit Provider Nurse Practitioner Acute Care
DX: G47.33 Obstructive sleep apnea (adult) (pediatric) (principal)
CPT/HCPCS: 95811

== ENCOUNTER → 2021-07-14 06:21 | Outpatient (CLI) | payer OTHER, SELFPAY | PROVIDERS: PCP Internal Medicine; Visit Provider Nurse Practitioner Acute Care | DX: Z46.89 Encounter for fitting and adjustment of other specified devices (principal) ==

== ENCOUNTER → 2021-10-20 15:50 | Outpatient (CLI) | payer OTHER, SELFPAY ==
--- NOTE | 2021-10-20 15:58 | US_ITS ---
STUDY: RENAL ULTRASOUND - COMPLETE REASON FOR EXAM: Male, 46 years old. INCOMPLETE EMPTING OF BLADDER TECHNIQUE: Ultrasound evaluation of the kidneys was performed with real-time and static polanco-scale imaging. COMPARISON: None. FINDINGS: RIGHT KIDNEY: Normal location of the right kidney, which is normal in size. The right kidney measures 11.2 cm. There is a normal cortex of the right kidney. The renal cortex measures 1.4 cm. There is no right renal mass or cyst. There are no right renal calculi. There is no right hydronephrosis. DISTAL RIGHT URETER: There is non-visualization of the distal right ureter. There is no demonstrated right ureterovesical junction calculus. There is a visualized right ureteral jet. LEFT KIDNEY: Normal location of the left kidney, which is normal in size. The left kidney measures 11.6 cm. There is a normal cortex of the left kidney. The renal cortex measures 1.2 cm. 1.4 cm cyst in the midsection of left kidney. There are no left renal calculi. There is no left hydronephrosis. DISTAL LEFT URETER: There is non-visualization of the distal left ureter. There is no demonstrated left ureterovesical junction calculus. There is a visualized left ureteral jet. BLADDER: The distended urinary bladder has a volume of 139 ml. The empty urinary bladder has a volume of 83 ml. There is a normal wall thickness of the distended urinary bladder. There is no demonstrated mass within the urinary bladder. There are no demonstrated bladder calculi. US/Kidney and Bladder IMPRESSION: Normal ultrasound of the kidneys and urinary bladder. Electronically Signed: Ney Ovalle MD at 16:49 EST Tel , Service support ,
== END ==
PROVIDERS: PCP Internal Medicine; Visit Provider Nurse Practitioner
DX: R33.9 Retention of urine, unspecified (principal)
CPT/HCPCS: 76770

== ENCOUNTER → 2022-05-03 | Outpatient (CLI) | payer OTHER, SELFPAY ==
[2022-05-03 11:33] LABS: Anion Gap 6 (5-15); BUN 13 mg/dL (7-18); BUN/Creat Ratio 11.9 RATIO (10-20); Calcium,Total 9.1 mg/dL (8.5-10.1); Chloride 106 mmol/L (98-107); Cholesterol 150 mg/dL (200); Creatinine, Serum 1.09 mg/dL (0.70-1.30); EST Glomerular Filtration Rate 78 mL/min (>60); Est Glom Filt Rate - Afr Amer 94 mL/min (>60); Glucose 115 mg/dL (74-106); High Density Lipoprotein 49 mg/dL; Potassium 4.6 mmol/L (3.5-5.1); Sodium Level 137 mmol/L (136-145); Triglycerides 200 mg/dL; Very Low Density Lipoprotein 40 mg/dL (5-40)
== END | disposition home or self-care (01) ==
LOC: LAB 10:09
PROVIDERS: PCP Internal Medicine
DX: I50.22 Chronic systolic (congestive) heart failure (principal)
CPT/HCPCS: 36415; 80048; 80061

== ENCOUNTER → 2022-09-07 | Outpatient (CLI) | payer OTHER, SELFPAY ==
--- NOTE | 2022-09-07 11:30 | MRI_ITS ---
STUDY: MRI LUMBAR SPINE WITHOUT CONTRAST REASON FOR EXAM: Male, 47 years old. Lumbar radiculopathy. TECHNIQUE: Standardized fat and water weighted pulse sequences were obtained in the sagittal and axial planes. COMPARISON: CT abdomen and pelvis without contrast 07/11/2016. FINDINGS: T12-L1: (Sagittal only). Normal endplates. Normal disc height, hydration and morphology. No ventral extradural defect. Normal central canal and bilateral intervertebral neural foramina. Normal lumbar lordosis. There is no substantial scoliosis. Normal conus medullaris that terminates at the upper L1 vertebral body level. L1-2: Normal endplates. Normal disc height, hydration and morphology. Normal bilateral facet joints. Normal central canal and bilateral lateral recesses. Normal bilateral intervertebral neural foramina. L2-3: Normal endplates. Mild disc space height narrowing. No significant facet arthropathy. Normal central canal and bilateral lateral recesses. Normal bilateral intervertebral neural foramina. L3-4: Normal endplates. Minimal disc space height narrowing. Small midline ventral extradural defect due to small posterior midline disc protrusion. No significant facet arthropathy. Normal central canal and bilateral lateral recesses. Normal bilateral intervertebral neural foramina. L4-5: MODIC type II degenerative vertebral marrow underneath the size of the vertebral endplates. L5 central round benign vertebral body hemangioma correlates with the CT finding. Moderate disc space height narrowing. Mild degenerative retrolisthesis of L4 on L5 is unchanged. No ventral extradural defect due to presence of ventral epidural fat. No significant facet arthropathy. Normal central canal and bilateral lateral recesses. Normal bilateral intervertebral neural foramina. L5-S1: Mild MODIC type II degenerative vertebral marrow fatty changes underneath the right side of the vertebral endplates. Normal disc height, hydration and morphology. Prominent ventral epidural fat. Normal facet joints. Normal central canal and bilateral lateral recesses. Normal bilateral intervertebral neural foramina. Normal visualized sacral ala. Normal visualized paraspinous soft tissue structures. MRI/Spine Lumbar (Routine) IMPRESSION: 1. No MRI evidence of lumbar extruded disc fragment or spinal stenosis. 2. Small L3-L4 posterior midline disc protrusion (series 5, image 13). 3. L5 benign vertebral body hemangioma. This was present on CT abdomen and pelvis of 07/11/2016. 4. Mild degenerative retrolisthesis of L4 on L5 is unchanged. Electronically Signed: Kenroy Carbajal MD at 12:25 EDT ,
== END | disposition home or self-care (01) ==
LOC: MRI 11:01
PROVIDERS: PCP Internal Medicine; Referring Provider Anesthesiology Pain Medicine; Visit Provider Anesthesiology Pain Medicine
DX: M54.16 Radiculopathy, lumbar region (principal)
CPT/HCPCS: 72148

== ENCOUNTER 2023-01-17 13:17 | Emergency (ER) | payer OTHER, SELFPAY ==
[2023-01-17 13:18] VITALS: BP 100/78; PULSE 83; RESP 16; TEMP 35.8; O2SAT 96
--- NOTE | 2023-01-17 15:21 | EDS_ITS ---
HPI History of Present Illness Chief Complaint: Laceration Informant: patient and spouse/S.O. Narrative Narrative: Hand dominant male presents laceration to the right palmar aspect of hand occurring 2 hours prior to arrival. Patient cut in linoleum with the machine with a knife came up hitting his palm. He is not on any blood thinners tetanus more than 5 years ago. Bleeding controlled. Paresthesias around the palmar aspect no distal paresthesias no loss of function of the digits. Tetanus Immunization: Unknown Prior similar symptoms: No PFSH PFSH Medical History Abnormal echocardiogram Cardiomyopathy Dog bite of scalp Essential hypertension Pure hypercholesterolemia Scalp laceration Home Medications albuterol sulfate 90 mcg/actuation aerosol inhaler 1 - 2 puff inhalation Q4H PRN PRN Sob &/Or Wheezing 11/23/19 [History Last Taken Unknown] fexofenadine 180 mg tablet 180 mg PO DAILY 11/23/19 [History Last Taken Unknown] multivitamin with minerals 1 ea PO DAILY 11/23/19 [History Last Taken Unknown] omeprazole 20 mg capsule,delayed release 20 mg PO DAILY PRN Indigestion 11/23/19 [History Last Taken 11/28/19] aspirin 81 mg chewable tablet 81 mg PO DAILY ##30 11/28/20 [Rx Last Taken Unknown] zinc 50 mg tablet 50 mg PO DAILY 11/28/20 [History Last Taken Unknown] melatonin 5 mg tablet 5 mg PO HS PRN Insomnia 12/01/20 [History Last Taken Unknown] rosuvastatin 10 mg tablet 10 mg PO DAILY 12/01/20 [History Last Taken Unknown] sacubitril 97 mg-valsartan 103 mg tablet (Entresto) 1 tab PO BID #60 tabs 02/08/22 [Rx Last Taken Unknown] spironolactone 25 mg tablet 25 mg PO DAILY #90 tabs 05/26/22 [Rx Last Taken Unknown] carvedilol 25 mg tablet 25 mg PO BID #180 tabs 10/26/22 [Rx Last Taken Unknown] dapagliflozin 10 mg tablet (Farxiga) 10 mg PO DAILY #30 tabs 11/08/22 [Rx Last Taken Unknown] gabapentin 300 mg capsule 300 mg PO TID 11/08/22 [History Last Taken Unknown] Allergy/AdvReac Type Severity Reaction Status Date / Time codeine AdvReac Rash Verified 01/17/23 13:18 Family History Grandfather Valvular heart disease Mother Hypertension Father Hypertension Surgical History History of hernia repair History of left heart catheterization (LHC) (~12/09/20) History of mandibular surgery History of rotator cuff surgery Social History Smoking Status: Never smoker alcohol intake: never substance use type: does not use caffeine: Yes Type: coffee Number of servings: 2 ROS ROS ED Constitutional Constitutional ED: Denies chills, fever(s) or sweats Eyes Eyes: Denies change in vision ENT ENT ED: Denies dysphagia or sore throat Cardiovascular Cardiovascular: Denies chest pain, leg edema, palpitations or racing heartbeat Respiratory/Chest Respiratory/Chest: Denies cough, dyspnea or dyspnea on exertion Gastrointestinal Gastrointestinal: Denies abdominal pain, diarrhea, nausea or vomiting Genitourinary Genitourinary ED: Denies dysuria, hematuria or urinary frequency Musculoskeletal Musculoskeletal: Denies back pain, extremity pain or neck pain Integumentary Reports wounds; Denies rash Neurologic Neurologic: Denies headache(s), paresthesias or weakness EXAM Physical Exam Const Vital Signs: 01/17/23 13:18 Temperature 96.5 F L Temperature Source Temporal Pulse Rate 83 Respiratory Rate 16 Blood Pressure 100/78 Blood Pressure Mean 85 Pulse Ox 96 Oxygen Delivery Method Room Air Positive well nourished and well developed General Appearance ED: well developed and NAD HEENT Reports moist mucous membranes normocephalic and atraumatic Eyes PERRL, EOMs intact bilaterally and conjunctivae normal General Eye ED: Yes normal appearance of both eyes Neck no lymphadenopathy and supple General: Negative for tenderness Chest Wall Chest: Negative for tenderness Resp normal respiratory effort and normal air movement Effort and Inspection: symmetric chest movement; Negative for respiratory distress Cardio regular rate, regular rhythm and no murmurs Peripheral Pulses: pulses 2+ throughout GI normal to inspection, nondistended, normoactive bowel sounds and non-tender Palpation: Negative for guarding or rebound tenderness present Back/Spine no CVA tenderness and no thoracic nor lumbar tenderness Extremity Extremity Narrative: Right upper extremity: Hand: 3 cm laceration across the thenar eminence at the base, subcutaneous exposure minimal bleeding controlled with pressure. No distal paresthesias of thumb index or middle finger. Strong normal flexion of the PIP and DIP joints of the distal digits. Strong flexion of the thumb without any loss of motion. There is no tendon exposure. No injury of the volar wrist region. General Extremety ED: Negative for edema or tenderness General Extremity: Negative for edema Neuro oriented x3 and no sensory deficits noted Sensorium / Orientation: awake and alert Skin no rashes or lesions noted and no wounds MDM MDM MDM Narrative Medical decision making narrative: Interventions / MDM: Differential diagnosis: Hand laceration Diagnosis considered but do not suspect: Tendon injury however no visualization of tendons with any injury. My EKG interpretation: N/A Imaging independently reviewed and interpreted by myself: External documents reviewed: N/A Test considered but not ordered: X-ray of the hand, however after thorough evaluation of the wound there is no deeper injuries for concerns of any bony injuries. ED course: Patient laceration palmar aspect. Tetanus was updated, Thorough iman luation of the wound, there is no signs of tendon injury. Wound was repaired. Wound care discussed. Sutures removed in 2 weeks. All questions were answered. Re-evaluation: stable Disposition discussed with patient/family/significant other: Case discussed with consulting clinician: N/A Procedure note: Verbal consent. Laceration repair. Normal sterile conditions. 4 cc 2% lidocaine with epinephrine used for local analgesia. Scope was flushed with normal saline, wound was grossly evaluated there is no foreign bodies there is no tendon exposure thumb was taken through full range of motion of abduction extension and flexion. Index finger also in full range of motion without any signs of injury or tendon exposure. Wound was closed using a total 5, 5-0 nylon simple interrupted sutures with good approximation. Patient Toller procedure well. Bacitracin placed by myself along with dressing. Discharge Plan Triage Chief Complaint: Laceration ED Provider: Galileo Lockhart Dx/Rx/DC Orders Clinical Impression: Laceration of hand, right, Tetanus toxoid vaccination administered at current visit Instructions: ED Laceration, Hand: All Closures Prescriptions: No Action rosuvastatin 10 mg tablet 10 mg PO DAILY melatonin 5 mg tablet 5 mg PO HS PRN (Reason: Insomnia) gabapentin 300 mg capsule 300 mg PO TID fexofenadine 180 MG tablet 180 mg PO DAILY multivitamin with minerals 1 EACH tablet 1 ea PO DAILY albuterol sulfate 1 PUFF inhaler 1 - 2 puff INHALATION Q4H PRN PRN (Reason: Sob &/Or Wheezing) omeprazole 20 MG capsule 20 mg PO DAILY PRN (Reason: Indigestion) zinc 50 MG tablet 50 mg PO DAILY aspirin 81 MG tablet,chewable 81 mg PO DAILY Qty: 30 0RF Entresto 97-103 mg tablet 1 tab PO BID Qty: 60 11RF spironolactone 25 mg tablet 25 mg PO DAILY Qty: 90 3RF carvedilol 25 mg tablet 25 mg PO BID Qty: 180 3RF Rx Instructions: must administer with a meal/food Farxiga 10 mg tablet 10 mg PO DAILY Qty: 30 11RF Primary Care Provider: Rula Denny Referrals: Rula Denny DO [Primary Care Provider] - 10-14 Days suture removal Disposition Disposition: Home, Self Care Discharge Date/Time: 01/17/23 16:18
[2023-01-17] MEDS: Diphth,Pertuss(Acell),Tet Vac 0.5 ML Vial IM (16:06)
[2023-01-17 16:11] VITALS: BMI 30.7
== END 2023-01-17 16:18 | disposition home or self-care (01) ==
LOC: ED 16:02
PROVIDERS: Emergency Provider Emergency Medicine; PCP Internal Medicine; Visit Provider Emergency Medicine
DX: S61.411A Laceration without foreign body of right hand, initial encounter (principal); E78.00 Pure hypercholesterolemia, unspecified; I10 Essential (primary) hypertension; Z23 Encounter for immunization; W29.8XXA Contact with other powered hand tools and household machinery, initial encounter
CPT/HCPCS: 12002; 90471; 90715; 99282

== ENCOUNTER 2024-04-16 16:33 | Emergency (ER) | payer OTHER, SELFPAY ==
[2024-04-16 16:34] VITALS: BP 130/87; PULSE 86; RESP 18; TEMP 35.9; O2SAT 96; BMI 33.4
--- NOTE | 2024-04-16 17:54 | EDS_ITS ---
HPI <YOLANDA Gasca - Last Filed: 04/16/24 21:38> History of Present Illness Chief Complaint: Lower Extremity Injury Narrative Narrative: 48 year old male presents with 1 week of left-sided buttock pain that became more severe over the last 3 days. Pain is worse with sitting and radiates from the buttock to the left hip. It does not go down the leg. He has no saddle anesthesia, weakness, paresthesias, or bladder or bowel incontinence. No trauma. No history of similar symptoms. He tried tylenol without improvement. [facility] <YOLANDA Gasca - Last Filed: 04/16/24 21:38> [facility] Medical History Abnormal echocardiogram Cardiomyopathy Dog bite of scalp Essential hypertension Pure hypercholesterolemia Scalp laceration Home Medications ?Medication ?Instructions ?Recorded ?Last Taken ?Type albuterol sulfate 90 mcg/actuation 1 - 2 puff inhalation Q4H PRN PRN 11/23/19 Unknown History aerosol inhaler Sob &/Or Wheezing fexofenadine 180 mg tablet 180 mg PO DAILY 11/23/19 Unknown History multivitamin with minerals 1 ea PO DAILY 11/23/19 Unknown History omeprazole 20 mg capsule,delayed 20 mg PO DAILY PRN Indigestion 11/23/19 11/28/19 History release aspirin 81 mg chewable tablet 81 mg PO DAILY ##30 11/28/20 Unknown Rx zinc 50 mg tablet 50 mg PO DAILY 11/28/20 Unknown History melatonin 5 mg tablet 5 mg PO HS PRN Insomnia 12/01/20 Unknown History rosuvastatin 10 mg tablet 10 mg PO DAILY 12/01/20 Unknown History spironolactone 25 mg tablet 25 mg PO DAILY #90 tabs 05/26/22 Unknown Rx gabapentin 300 mg capsule 300 mg PO BID 11/08/22 Unknown History sacubitril 97 mg-valsartan 103 mg 1 tab PO BID #180 tabs 05/16/23 Unknown Rx tablet (Entresto) dapagliflozin propanediol 10 mg See Rx Instructions .Route 10/21/23 Unknown Rx tablet (Farxiga) .COMPLEX #30 tabs carvedilol 25 mg tablet 37.5 mg PO BID 12/12/23 Unknown History gabapentin 300 mg capsule 600 mg PO QHS back pain 04/16/24 Unknown History methylprednisolone 4 mg tablets in See Rx Instructions PO .COMPLEX 04/16/24 Unknown Rx a dose pack (Medrol (Gabino)) #21 tabs orphenadrine citrate 100 mg 100 mg PO BID 7 days #14 tabs 04/16/24 Unknown Rx tablet,extended release tramadol 50 mg tablet 50 mg PO Q6H PRN pain #8 tabs 04/16/24 Unknown Rx Allergy/AdvReac Type Severity Reaction Status Date / Time codeine AdvReac Rash Verified 04/16/24 16:34 Family History Grandfather Valvular heart disease Mother Hypertension Father Hypertension Surgical History History of hernia repair History of left heart catheterization (LHC) (~12/09/20) History of mandibular surgery History of rotator cuff surgery Social History Smoking Status: Never smoker alcohol intake: never substance use type: does not use caffeine: Yes Type: coffee Number of servings: 2 ROS <YOLANDA Gasca - Last Filed: 04/16/24 21:38> ROS ED Constitutional Constitutional ED: Denies chills or fever(s) Cardiovascular Cardiovascular: Denies chest pain Respiratory/Chest Respiratory/Chest: Denies dyspnea Gastrointestinal Gastrointestinal: Denies abdominal pain Genitourinary Genitourinary ED: Denies dysuria Musculoskeletal Musculoskeletal: Reports back pain Neurologic Neurologic: Denies paresthesias or weakness EXAM <YOLANDA Gasca - Last Filed: 04/16/24 21:38> Physical Exam Const Vital Signs: 04/16/24 16:34 04/16/24 19:47 Temperature 96.7 F L 98.0 F Temperature Source Temporal Pulse Rate 86 79 Respiratory Rate 18 16 Blood Pressure 130/87 H 135/65 H Blood Pressure Mean 101 88 Pulse Ox 96 100 Oxygen Delivery Method Room Air Positive well nourished and well developed General Appearance ED: well developed Resp normal respiratory effort and clear to auscultation bilaterally Cardio regular rate, regular rhythm and no murmurs GI normal to inspection, nondistended, normoactive bowel sounds, non-tender and non-distended Back/Spine Back/Spine Narrative: normal inspection, no midline tenderness or step offs, tender over left SI joint. Left hip flexion is limited by pain, 5/5 strength in knee flexion/extension and DF/PF bilaterally, normal sensation, 2+ PT pulses. No edema or calf tenderness. Extremity normal to inspection <Kenroy Daly MD - Last Filed: 04/16/24 22:55> Physical Exam Const Vital Signs: 04/16/24 16:34 04/16/24 19:47 Temperature 96.7 F L 98.0 F Temperature Source Temporal Pulse Rate 86 79 Respiratory Rate 18 16 Blood Pressure 130/87 H 135/65 H Blood Pressure Mean 101 88 Pulse Ox 96 100 Oxygen Delivery Method Room Air MDM <YOLANDA Gasca - Last Filed: 04/16/24 21:38> [facility] Narrative Medical decision making narrative: History gathered from: Patient and spouse Differential includes: ? Sacroiliitis ? Sciatica ? Lumbar radiculopathy ? No red flag signs concerning for cauda equina syndrome ? Bursitis Patient has atraumatic left hip pain that is focused over the SI joint on exam. He also has pain with hip flexion. Lower extremity MSPs and reflexes are intact. He has no midline spinal tenderness. He has no signs or symptoms of an intra-abdominal process. Left hip and pelvis x-ray shows no acute findings. He was treated with IM Toradol and Norflex with some improvement. I suspect sacroiliitis and prescribed Medrol Dosepak, Norflex, and tramadol for breakthrough pain. I recommended follow-up with his primary care doctor and he was discharged in stable condition. Radiography Diagnostic Testing: Clinical Impression(s) from Imaging Studies Hip/Pelvis X-Ray 04/16/24 18:40 IMPRESSION: Degenerative change. No fracture. Electronically Signed: Joe Parikh MD at 21:26 EDT , ED attending interpretation of left hip and pelvis shows no acute fracture or dislocation. <Kenroy Daly MD - Last Filed: 04/16/24 22:55> [facility] Narrative Medical decision making narrative: History gathered from: Patient and spouse Differential includes: ? Sacroiliitis ? Sciatica ? Lumbar radiculopathy ? No red flag signs concerning for cauda equina syndrome ? Bursitis Patient has atraumatic left hip pain that is focused over the SI joint on exam. He also has pain with hip flexion. Lower extremity MSPs and reflexes are intact. He has no midline spinal tenderness. He has no signs or symptoms of an intra-abdominal process. Left hip and pelvis x-ray shows no acute findings. X- rays of the left hip and pelvis were interpreted independently by ED physician and discussed. Radiology report was reviewed which confirms the ED physician's independent interpretation. He was treated with IM Toradol and Norflex with some improvement. I suspect sacroiliitis and prescribed Medrol Dosepak, Norflex, and tramadol for breakthrough pain. I recommended follow-up with his primary care doctor and he was discharged in stable condition. Dr. Daly: I have personally performed a face to face assessment of the patient and have reviewed the OBEY Note. I performed a substantive portion of the visit including all aspects of the following. My grier findings include: History is left hip and sacroiliac pain x 1 week Exam is afebrile. Vital signs noted. Neurovascular intact bilateral lower extremities. Able to stand. Positive tenderness to palpation sciatic notch and sacroiliac joint, left. Medical Decision Making: Obtain x-rays. X-rays of the left hip and pelvis interpreted by myself independently shows no evidence of an acute fracture or dislocation. I reviewed the radiology report which confirms my independent inte rpretation. Symptomatic treatment with Medrol Dosepak and muscle relaxers. Follow-up primary care. Other additions or changes: [None] Radiography Diagnostic Testing: Clinical Impression(s) from Imaging Studies Hip/Pelvis X-Ray 04/16/24 18:40 IMPRESSION: Degenerative change. No fracture. Electronically Signed: Joe Parikh MD at 21:26 EDT , Discharge Plan Triage Chief Complaint: Lower Extremity Injury ED Midlevel Provider: Mercy Samaniego ED Provider: Kenroy Daly Dx/Rx/DC Orders Clinical Impression: Pain of left sacroiliac joint Instructions: ED Back Pain (Acute or Chronic) Prescriptions: New orphenadrine citrate 100 mg tablet extended release 100 mg PO BID 7 Days Qty: 14 0RF methylprednisolone [Medrol (Gabino)] 4 mg tablets,dose pack See Rx Instructions .ROUTE .COMPLEX Qty: 21 0RF Rx Instructions: orally per package directions tramadol 50 mg tablet 50 mg PO Q6H PRN (Reason: pain) Qty: 8 0RF No Action rosuvastatin 10 mg tablet 10 mg PO DAILY melatonin 5 mg tablet 5 mg PO HS PRN (Reason: Insomnia) carvedilol 25 mg tablet 37.5 mg PO BID Rx Instructions: must administer with a meal/food gabapentin 300 mg capsule 300 mg PO BID Rx Instructions: 300 mg orally; fexofenadine 180 MG tablet 180 mg PO DAILY multivitamin with minerals 1 EACH tablet 1 ea PO DAILY albuterol sulfate 1 PUFF inhaler 1 - 2 puff INHALATION Q4H PRN PRN (Reason: Sob &/Or Wheezing) omeprazole 20 MG capsule 20 mg PO DAILY PRN (Reason: Indigestion) zinc 50 MG tablet 50 mg PO DAILY aspirin 81 MG tablet,chewable 81 mg PO DAILY Qty: 30 0RF gabapentin 300 mg capsule 600 mg PO QHS spironolactone 25 mg tablet 25 mg PO DAILY Qty: 90 3RF Entresto 97-103 mg tablet 1 tab PO BID Qty: 180 3RF Farxiga 10 mg tablet See Rx Instructions .ROUTE .COMPLEX Qty: 30 11RF Dose Instruction: TAKE 1 TABLET BY MOUTH EVERY DAY Rx Instructions: TAKE 1 TABLET BY MOUTH EVERY DAY Primary Care Provider: Rula Denny Referrals: Rula Denny DO [Primary Care Provider] - Activity Restrictions/Additional Instructions: I prescribed muscle relaxers and Medrol steroid Dosepak. You can use tramadol for breakthrough pain. It is in the same family as codeine so if it causes a rash please discontinue. Follow-up with your primary care doctor. Print Language: Italian Disposition Disposition: Home, Self Care Discharge Date/Time: 04/16/24 19:47
[2024-04-16] MEDS: Orphenadrine 60 MG/2 ML Ampul IM (18:06)
[2024-04-16] MEDS: Ketorolac 30 MG/ML Syringe IM (18:06)
--- NOTE | 2024-04-16 18:40 | RAD_ITS ---
STUDY: X-RAY - PELVIS AND LEFT HIP REASON FOR EXAM: Male, 48 years old. Pain TECHNIQUE: 3 views of the pelvis and hip. COMPARISON: None. FINDINGS: There is a normal bowel gas pattern. Normal visualized soft tissue structures. Normal bilateral iliac wings, sacroiliac joints and visualized sacrum. Normal bilateral superior and inferior pubic rami. Normal pubic symphysis. Normal bilateral ischial tuberosities. There is cam deformity with mild spurring of the lateral femoral head neck junction. There is mild osteoarthritic spur formation of the acetabular rim. Normal hip joint. There is no acute fracture seen. RAD/HIP, UNI W/ Pelvis 2-3 Views IMPRESSION: Degenerative change. No fracture. Electronically Signed: Joe Parikh MD at 21:26 EDT ,
[2024-04-16 19:47] VITALS: BP 135/65; PULSE 79; RESP 16; TEMP 36.7; O2SAT 100
== END 2024-04-16 19:47 | disposition home or self-care (01) ==
PROVIDERS: Emergency Provider Emergency Medicine; PCP Internal Medicine; Visit Provider Emergency Medicine
DX: M53.3 Sacrococcygeal disorders, not elsewhere classified (principal); I10 Essential (primary) hypertension; E78.00 Pure hypercholesterolemia, unspecified; Z79.82 Long term (current) use of aspirin; Z79.899 Other long term (current) drug therapy
CPT/HCPCS: 73502; 96372; 99282

== ENCOUNTER → 2024-04-30 | Outpatient (CLI) | payer OTHER, SELFPAY ==
--- NOTE | 2024-04-30 08:45 | MRI_ITS ---
HISTORY: Acute sciatica, numbness and tingling into left leg/hip. TECHNIQUE: Multiplanar and multisequence MR images of the lumbar spine were obtained without intravenous contrast. 161 images. COMPARISON: 09/07/2022. FINDINGS: VERTEBRAE: Vertebral body heights maintained. Degenerative endplate changes of L4-5 and L5-S1. Chronic small L5 vertebral body hemangioma. ALIGNMENT: No anterior or posterior subluxation. CONUS: Normal morphology and position of the conus medullaris at L1. INTERVERTEBRAL DISCS: T12-L1, L1-2: No significant posterior disc protrusion, central canal stenosis, or foraminal narrowing L2-3: Minimal disc bulge and mild facet arthropathy resulting in mild bilateral foraminal narrowing. No significant central canal stenosis. L3-4: Mild central disc protrusion with facet arthropathy resulting in mild central canal stenosis and bilateral foraminal narrowing, slightly progressed from prior. L4-5: Mild posterior disc bulge osteophyte complex with facet arthropathy resulting in moderate bilateral foraminal narrowing, progressed from prior. Minimal narrowing of the thecal sac. L5-S1: Mild disc bulge with facet arthropathy. Tapering of the thecal sac with prominent ventral epidural fat. No significant central canal stenosis. Mild bilateral foraminal narrowing. SOFT TISSUES: Mild posterior subcutaneous edema MRI/Spine Lumbar (Routine) IMPRESSION: Mild multilevel degenerative disc disease, mildly progressed from prior. Electronically Signed: Deanna Hale MD at 13:51 EDT ,
== END | disposition home or self-care (01) ==
PROVIDERS: PCP Internal Medicine; Referring Provider Internal Medicine; Visit Provider Internal Medicine
DX: M54.30 Sciatica, unspecified side (principal)
CPT/HCPCS: 72148

== ENCOUNTER 2024-07-11 07:00 | Outpatient (RCR) | payer OTHER, SELFPAY ==
--- NOTE | 2024-06-18 10:02 | HP.PTEVAL_ITS ---
Patient's Visit Information Visit Information Visit Information: GADIEL CARVAJAL is a 49 year old M referred to Physical Therapy by Dr. Vikas Mccracken MD with a diagnosis of LBP. Date of Evaluation: 06/18/24 Physical Therapist: Shawn Gross, PT, ATC Visit Plan Frequency: 2x /Week Duration: 3 Weeks Plan: REIL, postural education, core stab ex's, and HEP Subjective Subjective: Pt reports he has had LBP for approximately 10 years. Pt notes he has been receiving injections over that time, which used to help, but doesnt help anymore. Pt reports he has tingling and numbness that radiates down his L LE to the foot region. Pt reports sitting for a long period of time increases his garcia. 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 Pt reports he has had xrays and a recent MRI which revealed he has a bulging disc. Pt reports sleep difficulty secondary to pain. Pt reports he hasnt had any physical therapy in the past, and hopes this helps because he wants to avoid surgery. Pt reports the only thing that helps his pain is to stand up and walk around. 7/10 pain while sitting here in the clinic, 10/10 at worst. Pain LBP: Pain Intensity (Out of 10): 7 Pain Intensity Range: 10 Objective Objective: Neuro: B LE sensation is WNL to light touch. MMT: R LE is 5/5 throughout. L LE is rated at 4/5, and is limited by LBP ROM: Pt is minimally limited with extension ROM. All other ranges are WNL Repeated movements: RFIS 10x2 increased LBP. ONOFRE NE. Prone prop x 1 min x 2 NE. REIL 10x2 Balance/Special Test Scores Oswestry Low Back Score: 10 Goals Goal 1:: Decrease LBP x 50% to aid with sleep Goal Time Frame: 4-6 Weeks Goal 2:: Decrease L LE radiculopathy x 50% to aid with IADL's Goal Time Frame: 4-6 Weeks Goal 3:: Increase L/S extension ROM to WNL painfree ROM to aid with IADL's Goal Time Frame: 4-6 Weeks Goal 4:: I with HEP Goal Time Frame: 4-6 Weeks Rehabilitation Potential Physical Therapy Diagnosis: Pt has LBP, L LE radiculopathy, and limited L/S ROM secondary to a L/S disc derrangement Rehabilitation Potential: Good Anticipated Interventions Patient/Client Instruction: Educate patient on: Condition and Plan of Care For the Purpose of:: To improve self management Therapeutic Exercise to Include: Strength training, Body mechanics, Postural training, Dynamic Lumbar Stabilization and Alejandra Exercises For the Purpose of:: To decrease pain, To increase ROM and To improve muscle performance and motor function Text: Thank you for the opportunity to evaluate your patient. For Medicare and Medicare HMO plans, please review the plan of care and approve it. It will need to be FAXED BACK to us at [phone] for Medicare purposes. For Medicare only, by signing this I certify the plan of care. Please let me know if there are questions or concerns regarding this plan of care. Physician Signature: Date:
--- NOTE | 2024-07-11 07:31 | HP.PTDCSUM ---
Discharge Summary D/C summary: It has been my pleasure to treat GADIEL CARVAJAL referred by Dr. Vikas Mccracken MD, with the diagnosis of LBP for a total of 7 visit(s). Discharge Date: Please see the following information for a summary of their discharge status. Subjective Subjective: I have made significant improvement, but I am not better yet. My glute pain is back Pain LBP: Pain Intensity (Out of 10): 0 Overall Improvement % Improvement: 80 Objective Objective/Function: Pt has made significant gains with pain and ROM Pt continues to have L glute pain Pt is I with HEP Rx goals are mostly achieved at this time Goals Goal 1:: Decrease LBP x 50% to aid with sleep Goal Progress: Goal Met Goal 2:: Decrease L LE radiculopathy x 50% to aid with IADL's Goal Progress: Progressing Goal 3:: Increase L/S extension ROM to WNL painfree ROM to aid with IADL's Goal Progress: Goal Met Goal 4:: I with HEP Goal Progress: Goal Met Plan Plan: Discharge to I HEP D/C Information d/c sentence: If there are questions or concerns regarding this patient's physical therapy, please feel free to call me at [phone]. Thank you for the referral of this patient. Sincerely, Shawn Gross, PT, ATC Balance/Gait/Functional tests Balance/Special Test Scores Oswestry Low Back Score: 7 Improvement % Improvement: 80
== END 2024-07-11 19:00 | disposition home or self-care (01) ==
LOC: PT 07:00
PROVIDERS: PCP Internal Medicine; Referring Provider Orthopaedic Surgery Orthopaedic Surgery of the Spine; Visit Provider Orthopaedic Surgery Orthopaedic Surgery of the Spine
DX: M54.16 Radiculopathy, lumbar region (principal); R29.898 Other symptoms and signs involving the musculoskeletal system
CPT/HCPCS: 97110; 97161; 97530

== ENCOUNTER 2025-09-24 10:00 | Outpatient (RCR) | payer OTHER, SELFPAY ==
--- NOTE | 2025-08-16 07:44 | HP.PTEVAL ---
Patient's Visit Information Visit Information Visit Information: GADIEL CARVAJAL is a 50 year old M referred to Physical Therapy by Dr. Rula Denny DO with a diagnosis of R shoulder pain. Date of Evaluation: 08/16/25 Physical Therapist: Esequiel Cyr, DPT, OCS, CSCS Visit Plan Frequency: 2-3x /Week Duration: 4-6 Weeks Plan: 2-3x/wek for 3-6 week IE HEP Pendulum 3x/day, scap circles 15x throughout day. most improtantly hammer theory activity modification with HO, posture etc. Treat with US nonthermal R supraspinatus and manual grade 1-2 g-h mobs R, postural correction, ensure activity modificatin, chest stretch and scap, RC, postural strength to HEP. Subjective Subjective: R shoulder pain upper arm for a couple months insidious onset. Not sure why. Shooting bow and taking care of moom. No numbness or tingling xcpt in tips of finger, neck feels fine. intermittent but far worse with moving arm . xtending out to side or long lever arm holding rifle makes it worse. Sleep is Ok.Retired. Spends day hunting fishing, woodworking, driving the [employer]. Has avoided shooting bow. Gets bad pain several times per day. Getting dresses hurts with moving too quick. basic ADLs are getting done. Walks 5 miles per day. l shoulder used to hurt and had RC and debrided it, it is fine, Pain R shoulder: Pain Intensity (Out of 10): 2 Pain Intensity Range: 2 and 10 Objective Objective: Walks normal and I, transfer I, babies R shoulder, doffs and dons sweeatshirt I but keeeps uppeer arm close to side. + HK an neeer, - ext rotation lag test - drop arm but painful empty can: R AROM L shouldeer WFL, R shoulder 100 flexion painful, 90 abd painful, 65 er painful, L shoulder 155 flexion abd and 80 er. IR is not painful eitheer side adn WFL, symmtrical. reflexs 1/3 bi and tri sensation UE WNL to gross light touch B. strength er painful 3+ R and 4 L, IR 4 B, flexion and abd 3 R painful and 4 L. Bi and tri 4+ no pain B. wrist adn thumb 4+ no pain B. Posture is protracted and elevated scap B with kyphosis in T/S, down rotated scap B. Max tenderness over supraspinatus R side only. Balance/Special Test Scores Quick DASH Score: 38.6350 Goals Goal 1:: Pain 0/10 at rest and 75% better Goal Time Frame: 2-4 Weeks Goal 2:: Pt with AROM R arm without more than 1/10 pain Goal Time Frame: 2-4 Weeks Goal 3:: I appropriate HEP to manage chronic shoulder [id number] Goal Time Frame: 4-6 Weeks Goal 4:: quickdash score 16 or better Goal Time Frame: 4-6 Weeks Goal 5:: dress and pull bow without increased pain Goal Time Frame: 4-6 Weeks Rehabilitation Potential Physical Therapy Diagnosis: R shoulder pain weakness imiting comfortable funciton Rehabilitation Potential: Good Anticipated Interventions Patient/Client Instruction: Educate patient on: Condition and Plan of Care For the Purpose of:: To decrease pain, To increase ROM, To improve nutrient delivery to tissue, To improve muscle performance and motor function and To increase tolerance to activity/condition/position Therapeutic Exercise to Include: Strength training, Postural training, Flexibilty training, Relaxation training, Passive ROM and Active ROM For the Purpose of:: To decrease pain, To increase ROM, To improve nutrient delivery to tissue, To improve muscle performance and motor function, To increase tolerance to activity/condition/position and To improve performance and independence with ADL's Manual Therapy Techniques to Include: Mobilization, Passive ROM and Soft tissue mobilization For the Purpose of:: To decrease pain, To increase ROM, To improve nutrient delivery to tissue, To increase tolerance to activity/condition/position and To improve ability of physical actions for home/community/work/leisure Cryotherapy (ice pack, ice massage): Yes Thermo therapy (hot pack): Yes Ultrasound (thermal/non thermal): Yes (nonthermal R supra) Text: Thank you for the opportunity to evaluate your patient. For Medicare and Medicare HMO plans, please review the plan of care and approve it. It will need to be FAXED BACK to us at [phone] for Medicare purposes. For Medicare only, by signing this I certify the plan of care. Please let me know if there are questions or concerns regarding this plan of care. Physician Signature: Date:
--- NOTE | 2025-09-06 07:41 | HP.PTREVAL_ITS ---
Re-Evaluation Intro: Dr. Rula Denny, DO, It has been my pleasure to treat GADIEL CARVAJAL over the last 9 visits for R shoulder pain. Please see the progress note below for an update on the physical therapy plan of care! Subjective Subjective: Status quo, hard to do external rotation exercise. Doesn't feel much has changed overall. pain daily is 3/10 with daily activities. 2/10 at rest. Sleep is up at night sometimees but just had tooth pulled. Doing HEP but er is limitd adn painful. This feels similar to L side prior to surgery to him. Has been trying to limit things that aggravate it. Wants to continue but contact doctor for next steep . Objective Objective/Function: 135 flexion with wincing, 30 er, L5 IR all with pain, abduction is 90 and pain is limiting factor, PROM is fucnitonal but painful past above measurements. Er strength weak and painful, IR 4/5, felxion 3+ L and painful, empty can painful. + labral tets, slight + drop arm(painful), + HK and neer all on L. Overall very little improvement except with flexion ROM. Plan Plan Plan: Pt to contact doctor regarding lack of progfress and next liz p being appropriate from a PT point of view. Treat in Meantime with d/c US, progress strength scap and RC and posturevia HEEP as tolerated adn please treat with grade 1-2 g-h mobs R shoulder and PROM to nd range, monitor neew ROM in HEP . 2-3 weeks to finish POC if new treatments helpful. Balance/Gait/Functional tests Balance/Special Test Scores Quick DASH Score: 25.0000 Goals Goals Goal 1:: Pain 0/10 at rest and 75% better Goal Time Frame: 2-4 Weeks Goal Progress: Not Progressing Goal 2:: Pt with AROM R arm without more than 1/10 pain Goal Time Frame: 2-4 Weeks Goal Progress: Not Progressing Goal 3:: I appropriate HEP to manage chronic shoulder [id number] Goal Time Frame: 4-6 Weeks Goal 4:: quickdash score 16 or better Goal Time Frame: 4-6 Weeks Goal Progress: Progressing Goal 5:: dress and pull bow without increased pain Goal Time Frame: 4-6 Weeks Goal Progress: Not Progressing Anticipated Interventions Anticipated Interventions Patient/Client Instruction: Educate patient on: Condition and Plan of Care For the Purpose of:: To decrease pain, To increase ROM, To improve nutrient delivery to tissue, To improve muscle performance and motor function and To increase tolerance to activity/condition/position Therapeutic Exercise to Include: Strength training, Postural training, Flexibilty training, Relaxation training, Passive ROM and Active ROM For the Purpose of:: To decrease pain, To increase ROM, To improve nutrient delivery to tissue, To improve muscle performance and motor function, To increase tolerance to activity/condition/position and To improve performance and independence with ADL's Manual Therapy Techniques to Include: Mobilization, Passive ROM and Soft tissue mobilization For the Purpose of:: To decrease pain, To increase ROM, To improve nutrient delivery to tissue, To increase tolerance to activity/condition/position and To improve ability of physical actions for home/community/work/leisure Cryotherapy (ice pack, ice massage): Yes Thermo therapy (hot pack): Yes Ultrasound (thermal/non thermal): Yes (nonthermal R supra) Re-Evaluation Ending Re-evaluation ending: Please do not hesitate to contact me at [phone] by phone or if you have questions or concerns regarding this new plan of care! Sincerely, Esequiel Cyr, DPT, OCS, CSCS
--- NOTE | 2025-09-24 10:10 | HP.PTDCSUM ---
Discharge Summary D/C summary: It has been my pleasure to treat GADIEL CARVAJAL referred by Dr. Rula Denny DO, with the diagnosis of R shoulder pain for a total of 13 visit(s). Discharge Date: 09/24/25 Please see the following information for a summary of their discharge status. Subjective Subjective: No diffeerent overeall. Has not been able to do ex as he was living at hospice with mom who serv ices were yesterday. MRI ordereed but needs to schedule it. activities still limiteed in lifting and shooting bow. Cannot do wood working. Pain R shoulder: Pain Intensity (Out of 10): 4 Overall Improvement % Improvement: 0 Objective Objective/Function: 130 flexion slow and painful, 150 PROM but more pain. er 40 with pain on R and 50 PROM, IR slow but no overly painful. Full elbow ROM. + labral testing on R. Goals Goal 1:: Pain 0/10 at rest and 75% better Goal Progress: Not Progressing Goal 2:: Pt with AROM R arm without more than 1/10 pain Goal Progress: Not Progressing Goal 3:: I appropriate HEP to manage chronic shoulder [id number] Goal Progress: Goal Met Goal 4:: quickdash score 16 or better Goal Progress: Not Progressing Goal 5:: dress and pull bow without increased pain Goal Progress: Not Progressing Plan Plan: d/c to HEP, pt to have MRI and seek next step. Continue HEP in meantime. D/C Information Discharge Comments: D/C to HEP, pt to schedule MRI due to lack of improvement. d/c sentence: If there are questions or concerns regarding this patient's physical therapy, please feel free to call me at [phone]. Thank you for the referral of this patient. Sincerely, Esequiel Cyr, DPT, OCS, CSCS Balance/Gait/Functional tests Balance/Special Test Scores Quick DASH Score: 22.7250 Improvement % Improvement: 0
== END 2025-09-24 19:00 | disposition home or self-care (01) ==
LOC: PT 10:00
PROVIDERS: PCP Internal Medicine; Referring Provider Internal Medicine; Visit Provider Internal Medicine
DX: M25.511 Pain in right shoulder (principal)
CPT/HCPCS: 97035; 97110; 97140; 97161; 97164; 97530

== ENCOUNTER → 2025-10-04 | Outpatient (CLI) | payer OTHER, SELFPAY ==
--- NOTE | 2025-10-04 16:02 | MRI_ITS ---
PROCEDURE: UPPER EXT JOINT ONLY(ROUTINE) 10/04/2025 REASON FOR EXAM: SHOULDER PAIN ROTATOR CUFF DISORDER TECHNIQUE: Procedure Code: MRIUEJ Modality: MR Procedure: UPPER EXT JOINT ONLY(ROUTINE) T1, T2, PD, multiplanar and multisequence images of the right shoulder were obtained without IV contrast administration. COMPARISON: COMPARISON: None FINDINGS: Bone Marrow: There is a 1.2 by 1.0 cm subcortical cyst or interosseous ganglion deep to the supraspinatus insertion in the superolateral humeral head with adjacent marrow edema. AC joint: There is severe AC joint hypertrophy with a trace effusion. There is no evidence of AC joint separation. There is a type 3 acromion with impingement configuration. Rotator cuff: There is no significant muscular atrophy. There is a partial- thickness, full width, articular surface tear of the supraspinatus footplate without retraction. There is severe distal infraspinatus and subscapularis tendinopathy without full-thickness tear or retraction. The teres minor appears intact. Biceps tendon: The biceps tendon is present in the biceps tendon groove, with intact anchors. Labrum: There is no visible labral tear. Effusion: There is no significant joint effusion. There is a trace amount of fluid in the subacromial subdeltoid bursa, with bursitis. MRI/Upper Ext Joint Only(Routine) IMPRESSION: There is a 1.2 by 1.0 cm subcortical cyst or interosseous ganglion deep to the supraspinatus insertion in the superolateral humeral head with adjacent marrow edema. There is severe AC joint hypertrophy with a trace effusion. There is no evidence of AC joint separation. There is a type 3 acromion with impingement configuration. There is a partial-thickness, full width, articular surface tear of the suprasp inatus footplate without retraction. There is severe distal infraspinatus and subscapularis tendinopathy without ful l-thickness tear or retraction. There is a trace amount of fluid in the subacromial subdeltoid bursa, with burs itis. Reading [facility]
== END | disposition home or self-care (01) ==
LOC: MRI 15:53
PROVIDERS: PCP Internal Medicine; Referring Provider Internal Medicine; Visit Provider Internal Medicine
DX: M25.511 Pain in right shoulder (principal)
CPT/HCPCS: 73221